=== PATIENT | male | born 1950 | race Caucasian/White ===

== ENCOUNTER 2023-03-18 19:53 | Inpatient (IN) | payer OTHER, SELFPAY ==
[2023-03-18] VITALS (14 sets, daily range): BP systolic 140–200; BP diastolic 79–107; PULSE 79–140; RESP 13–22; TEMP 36.1; O2SAT 94–98; BMI 24.3
--- NOTE | 2023-03-18 20:05 | DI.RAD.S_ITS ---
PROCEDURE: XR CHEST 1V INDICATIONS: chest pain TECHNIQUE: One view of the chest was acquired. COMPARISON: None. FINDINGS: Surgical changes and devices: Sternotomy wires. Cardiac occluded device. Lungs and pleura: Low lung volumes. Mild right lung base opacities. No pleural effusions. Prominent appearance of the right hilum. Mediastinum: Borderline cardiomegaly. Bones and chest wall: No suspicious bony lesions. Overlying soft tissues appear unremarkable. IMPRESSION: Prominent appearance of the right hilum, as well as mild right lung base opacities. Correlate clinically for any infectious symptoms and consider surveillance imaging to ensure resolution. Dictated by: Cliff Arredondo M.D. on 03/18/2023 at 20:56 Approved by: Cliff Arredondo M.D. on 03/18/2023 at 20:58
--- NOTE | 2023-03-18 20:17 | ED.ARRPALP ---
HPI - Arrhythmia/Palpitations General Chief Complaint: Arrhythmia/Palpitations Stated Complaint: sob, afib / rvr Time Seen by Provider: 03/18/23 20:11 Source: patient and EMS Mode of arrival: EMS History of Present Illness HPI narrative: Patient is a 72-year-old male who arrived by EMS for evaluation of shortness of breath and cough. He states that he is a history of COPD and has not been feeling well for the past couple days. He is not having chest pain or palpitations. No lower extremity swelling. He feels like he is dehydrated. No fevers. He does have a nonproductive cough. He recently moved to the local area from [place]. He has a history of coronary artery disease. His head bypass in the past. Triage note states that he has a history of atrial fibrillation after his bypass however when I talked with the patient he states he does not remember ever having a irregular heart rhythm/atrial fibrillation. Related Data Allergies Allergy/AdvReac Type Severity Reaction Status Date / Time acetaminophen [From Tylenol] Allergy Unknown Verified 03/18/23 20:08 levothyroxine Allergy Unknown Verified 03/18/23 20:08 Review of Systems Constitutional Constitutional: Reports system reviewed and no additional complaints, except as documented Cardiovascular Cardiovascular: Reports system reviewed and no additional complaints, except as documented Respiratory Respiratory: Reports system reviewed and no additional complaints, except as documented Gastrointestinal Gastrointestinal: Reports system reviewed and no additional complaints, except as documented Integumentary/Breasts Skin/Breast: Reports system reviewed and no additional complaints, except as documented Neurologic Neurologic: Reports system reviewed and no additional complaints, except as documented Hematologic/Lymphatic On Anticoagulants: No Patient History Social History Smoking Status: Former smoker Smoking Status: Former smoker alcohol intake frequency: 0-2 drinks per day Substance Use Type: does not use Exam Initial Vital Signs Initial Vital Signs: Vital Signs Temperature 97 F L 03/18/23 20:00 Pulse Rate 138 H 03/18/23 20:00 Respiratory Rate 20 03/18/23 20:00 Blood Pressure 200/107 H 03/18/23 20:00 Pulse Oximetry 98 03/18/23 20:00 Oxygen Delivery Method Room Air 03/18/23 20:00 Const General: cooperative, comfortable and No ill appearing HENDC Head: normal to inspection and normocephalic Resp Effort & Inspection: normal respiratory effort Auscultation: clear to auscultation bilaterally Cardio Rate: tachycardic Rhythm: abnormal rhythm GI Inspection: normal to inspection and non-distended Neuro General: patient alert, patient awake and moves all extremities Extrem General: No edema Course Orders Ordered: ED Orders 03/18/23 20:05 XR chest 1V Stat EKG-12 Lead Stat 03/18/23 20:08 Complete Blood Count AUTO DIFF Stat Comprehensive Metabolic Panel Stat Lactate (Lactic Acid) Stat Lipase Stat Magnesium Stat PTT Partial Thromboplastin Woody Stat Procalcitonin Stat Prothrombin Time INR Stat Troponin & CK Cardiac Panel Stat 03/18/23 20:33 Respiratory Panel (Film Array) Stat 03/18/23 20:52 EKG-12 Lead Stat 03/18/23 22:04 Blood Culture Stat Acetaminophen (Acetaminophen 325 Mg Tablet) 650 mg PO Q6H PRN PRN Reason: Fever/Mild Pain (1-3) Al Hydrox/Mg Hydrox/Simethicone (Mag Hydrox/Alum/Simeth 30 Ml Udc) 30 ml PO Q6HR PRN PRN Reason: Dyspepsia Apixaban (Apixaban 5 Mg Tablet) 2.5 mg PO BID CRISTEL Calcium Carbonate (Calcium Carbonate 500 Mg Tab) 1,000 mg PO Q4HR PRN PRN Reason: Dyspepsia Diltiazem HCl (Diltiazem 30 Mg Tablet) 30 mg PO Q6HR CRISTEL DILTIAZEM (Diltiazem 125 Mg/125 Ml-D5w) 125 mg in 125 mls @ 5 mls/hr IV TITRATE CRISTEL; Protocol Last Titration: 03/18/23 23:03 Dose: 0 mg/hr, 0 mls/hr Documented By: Admin: 03/18/23 20:26 Dose: 5 mg/hr, 5 mls/hr Documented By: AMANDA Naloxone HCl (Naloxone 0.4 Mg/Ml Vial) 0.2 mg IV Q2MIN PRN PRN Reason: Opiate Reversal Ondansetron HCl (Ondansetron 4 Mg Odt) 4 mg PO Q8HR PRN PRN Reason: Nausea And Vomiting Sennosides (Sennosides 8.6 Mg Tablet) 17.2 mg PO BEDTIME CRISTEL Discontinued Medications Aspirin (Aspirin 81 Mg Chew Tab) 324 mg PO NOW ONE Stop: 03/18/23 20:06 Last Admin: 04/21/23 20:25 Dose: 324 mg Documented By: AMANDA Diltiazem HCl (Diltiazem 5 Mg/Ml Sdv) 10 mg IV NOW ONE Stop: 03/18/23 20:18 Last Admin: 03/18/23 20:25 Dose: 10 mg Documented By: AMANDA Diltiazem HCl (Diltiazem Cd 120 Mg Cap) 120 mg PO NOW ONE Stop: 03/18/23 22:01 Last Admin: 03/18/23 22:41 Dose: 120 mg Documented By: AMANDA Azithromycin 500 mg/ Dextrose 250 mls @ 250 mls/hr IV NOW ONE Stop: 03/18/23 21:34 Last Infusion: 03/19/23 00:14 Dose: 0 mls/hr Documented By: Admin: 03/18/23 23:02 Dose: 250 mls/hr Documented By: AMANDA Ceftriaxone Sodium 1,000 mg/ (Sodium Chloride) 100 mls @ 200 mls/hr IV NOW ONE Stop: 03/18/23 21:34 Last Infusion: 03/18/23 23:15 Dose: 0 mls/hr Documented By: Admin: 03/18/23 22:41 Dose: 200 mls/hr Documented By: AMANDA Metoprolol Succinate (Metoprolol Er 25 Mg Tablet) 25 mg PO NOW ONE Stop: 03/18/23 21:39 Last Admin: 03/18/23 23:30 Dose: Not Given Documented By: AMANDA Vital Signs Vital signs: Vital Signs - 8 hr 03/18/23 20:00 03/18/23 20:25 03/18/23 20:03 Temperature 97 F L Pulse Rate 138 H 134 H 120 H Respiratory Rate 20 14 Blood Pressure 200/107 H 178/103 H Pulse Oximetry 98 97 Oxygen Delivery Method Room Air 03/18/23 20:04 03/18/23 20:04 03/18/23 20:16 Temperature Pulse Rate 140 H 122 H Respiratory Rate 22 22 Blood Pressure 167/98 H Pulse Oximetry 97 98 Oxygen Delivery Method 03/18/23 20:16 03/18/23 20:30 03/18/23 20:30 Temperature Pulse Rate 101 H Respiratory Rate Blood Pressure 178/103 H 170/85 H Pulse Oximetry Oxygen Delivery Method 03/18/23 20:45 03/18/23 20:45 03/18/23 21:00 Temperature Pulse Rate 86 Respiratory Rate Blood Pressure 163/103 H 140/90 Pulse Oximetry 95 Oxygen Delivery Method 03/18/23 21:00 03/18/23 21:15 03/18/23 21:15 Temperature Pulse Rate 81 84 Respiratory Rate 13 Blood Pressure 158/93 H Pulse Oximetry 94 95 Oxygen Delivery Method 03/18/23 21:30 03/18/23 21:30 03/18/23 21:45 Temperature Pulse Rate 89 Respiratory Rate 17 Blood Pressure 164/101 H 149/83 H Pulse Oximetry 97 Oxygen Delivery Method 03/18/23 21:45 03/18/23 22:00 03/18/23 22:00 Temperature Pulse Rate 79 79 Respiratory Rate 13 13 Blood Pressure 147/89 H Pulse Oximetry 94 96 Oxygen Delivery Method 03/18/23 22:15 03/18/23 22:15 03/18/23 22:30 Temperature Pulse Rate 85 Respiratory Rate 13 Blood Pressure 140/79 142/85 H Pulse Oximetry 94 Oxygen Delivery Method 03/18/23 22:30 Temperature Pulse Rate 82 Respiratory Rate Blood Pressure Pulse Oximetry 96 Oxygen Delivery Method MDM - Arrhythmia/Palpitations Lab Data Attestation: I reviewed the patient's lab results. 03/18/23 20:08 03/18/23 20:08 Labs: Lab Results 03/18/23 03/18/23 03/18/23 Range/Units 20:08 20:08 20:08 WBC 13.9 H (4.5-11.0) X10^3/uL RBC 4.46 L (4.5-5.9) X10^6/uL Hgb 14.0 (13.5-17.5) g/dL Hct 41.5 (41-53) % MCV 93.0 (80-100) fL MCH 31.4 (26-34) PG MCHC 33.8 (30-36) % RDW 13.6 (11.6-14.8) % Plt Count 181 (150-400) X10^3/uL Neut % (Auto) 89.1 H (50-75) % Lymph % (Auto) 5.0 L (25-40) % [place] % (Auto) 5.4 (3-14) % Eos % (Auto) 0.2 L (2-4) % Baso % (Auto) 0.3 (0-2) % Neut # (Auto) 22600 H (9342-1128) /uL Lymph # (Auto) 700 L (9058-1352) /uL [place] # (Auto) 800 (0-900) /uL Eos # (Auto) 0 (0-450) /uL Baso # (Auto) 0 (0-100) /uL PT 13.4 H (10.1-12.7) SECONDS INR 1.2 (0.9-1.3) APTT 33 (26-36) SECONDS Sodium 138 (137-145) mmol/L Potassium 4.0 (3.4-5.1) mmol/L Chloride 100 (98-107) mmol/L Carbon Dioxide 29 (22-32) mmol/L BUN 19 (9-20) mg/dL Creatinine 0.65 L (0.66-1.25) mg/dL Estimated GFR > 60 (>60) mL/min BUN/Creatinine Ratio 29.2 H (6-22) Glucose 124 H (80-110) mg/dL Lactate (0.7-2.1) mmol/L Calcium 9.1 (8.4-10.2) mg/dL Magnesium 2.0 (1.6-2.3) mg/dL Total Bilirubin 1.6 H (0.2-1.3) mg/dL AST 28 (17-59) IU/L ALT 42 (<50) IU/L Alkaline Phosphatase 65 (38-126) U/L Total Creatine Kinase 76 (55-170) U/L CK-MB (CK-2) TNP CK-MB (CK-2) Rel Index TNP Troponin I 0.059 H (0.01-0.034) ng/mL NT-Pro-B Natriuret Pep (<125) pg/mL Total Protein 7.5 (6.3-8.2) g/dL Albumin 4.3 (3.5-5.0) g/dL Globulin 3.2 (1.7-4.1) g/dL Albumin/Globulin Ratio 1.3 (1.0-2.8) Lipase 20 L (23-300) U/L Procalcitonin (<0.5) ng/mL Free T4 (0.78-2.19) ng/dL Ethyl Alcohol ( - 10) mg/dL Chlamy pneumoniae PCR (Not Detect) Adenovirus (PCR) (Not Detect) B. pertussis DNA (PCR) (Not Detecte) B.parapertussis DNA PCR (Not Detecte) Coronavirus OC43 (PCR) (Not Detect) Coronavirus HKU1 (PCR) (Not Detect) Coronavirus 229E (PCR) (Not Detect) SARS-CoV-2 (PCR) (Not Detecte) Coronavirus NL63 (PCR) (Not Detect) Human Metapneumovir PCR (Not Detect) Influenza Type A (PCR) (Not Detect) Influenza Type B (PCR) (Not Detect) M. pneumoniae (PCR) (Not Detect) Parainfluenza 1 (PCR) (Not Detect) Parainfluenza 2 (PCR) (Not Detect) Parainfluenza 3 (PCR) (Not Detect) Parainfluenza 4 (PCR) (Not Detect) RSV (PCR) (Not Detect) Entero/Rhino (PCR) (Not Detect) 03/18/23 03/18/23 03/18/23 Range/Units 20:08 20:08 20:08 WBC (4.5-11.0) X10^3/uL RBC (4.5-5.9) X10^6/uL Hgb (13.5-17.5) g/dL Hct (41-53) % MCV (80-100) fL MCH (26-34) PG MCHC (30-36) % RDW (11.6-14.8) % Plt Count (150-400) X10^3/uL Neut % (Auto) (50-75) % Lymph % (Auto) (25-40) % [place] % (Auto) (3-14) % Eos % (Auto) (2-4) % Baso % (Auto) (0-2) % Neut # (Auto) (2509-1769) /uL Lymph # (Auto) (0689-7676) /uL [place] # (Auto) (0-900) /uL Eos # (Auto) (0-450) /uL Baso # (Auto) (0-100) /uL PT (10.1-12.7) SECONDS INR (0.9-1.3) APTT (26-36) SECONDS Sodium (137-145) mmol/L Potassium (3.4-5.1) mmol/L Chloride (98-107) mmol/L Carbon Dioxide (22-32) mmol/L BUN (9-20) mg/dL Creatinine (0.66-1.25) mg/dL Estimated GFR (>60) mL/min BUN/Creatinine Ratio (6-22) Glucose (80-110) mg/dL Lactate 1.5 (0.7-2.1) mmol/L Calcium (8.4-10.2) mg/dL Magnesium (1.6-2.3) mg/dL Total Bilirubin (0.2-1.3) mg/dL AST (17-59) IU/L ALT (<50) IU/L Alkaline Phosphatase (38-126) U/L Total Creatine Kinase (55-170) U/L CK-MB (CK-2) CK-MB (CK-2) Rel Index Troponin I (0.01-0.034) ng/mL NT-Pro-B Natriuret Pep (<125) pg/mL Total Protein (6.3-8.2) g/dL Albumin (3.5-5.0) g/dL Globulin (1.7-4.1) g/dL Albumin/Globulin Ratio (1.0-2.8) Lipase (23-300) U/L Procalcitonin 0.06 (<0.5) ng/mL Free T4 1.00 (0.78-2.19) ng/dL Ethyl Alcohol ( - 10) mg/dL Chlamy pneumoniae PCR (Not Detect) Adenovirus (PCR) (Not Detect) B. pertussis DNA (PCR) (Not Detecte) B.parapertussis DNA PCR (Not Detecte) Coronavirus OC43 (PCR) (Not Detect) Coronavirus HKU1 (PCR) (Not Detect) Coronavirus 229E (PCR) (Not Detect) SARS-CoV-2 (PCR) (Not Detecte) Coronavirus NL63 (PCR) (Not Detect) Human Metapneumovir PCR (Not Detect) Influenza Type A (PCR) (Not Detect) Influenza Type B (PCR) (Not Detect) M. pneumoniae (PCR) (Not Detect) Parainfluenza 1 (PCR) (Not Detect) Parainfluenza 2 (PCR) (Not Detect) Parainfluenza 3 (PCR) (Not Detect) Parainfluenza 4 (PCR) (Not Detect) RSV (PCR) (Not Detect) Entero/Rhino (PCR) (Not Detect) 03/18/23 03/18/23 03/18/23 Range/Units 20:08 20:08 20:33 WBC (4.5-11.0) X10^3/uL RBC (4.5-5.9) X10^6/uL Hgb (13.5-17.5) g/dL Hct (41-53) % MCV (80-100) fL MCH (26-34) PG MCHC (30-36) % RDW (11.6-14.8) % Plt Count (150-400) X10^3/uL Neut % (Auto) (50-75) % Lymph % (Auto) (25-40) % [place] % (Auto) (3-14) % Eos % (Auto) (2-4) % Baso % (Auto) (0-2) % Neut # (Auto) (5157-9294) /uL Lymph # (Auto) (4793-3351) /uL [place] # (Auto) (0-900) /uL Eos # (Auto) (0-450) /uL Baso # (Auto) (0-100) /uL PT (10.1-12.7) SECONDS INR (0.9-1.3) APTT (26-36) SECONDS Sodium (137-145) mmol/L Potassium (3.4-5.1) mmol/L Chloride (98-107) mmol/L Carbon Dioxide (22-32) mmol/L BUN (9-20) mg/dL Creatinine (0.66-1.25) mg/dL Estimated GFR (>60) mL/min BUN/Creatinine Ratio (6-22) Glucose (80-110) mg/dL Lactate (0.7-2.1) mmol/L Calcium (8.4-10.2) mg/dL Magnesium (1.6-2.3) mg/dL Total Bilirubin (0.2-1.3) mg/dL AST (17-59) IU/L ALT (<50) IU/L Alkaline Phosphatase (38-126) U/L Total Creatine Kinase (55-170) U/L CK-MB (CK-2) CK-MB (CK-2) Rel Index Troponin I (0.01-0.034) ng/mL NT-Pro-B Natriuret Pep 1140 H (<125) pg/mL Total Protein (6.3-8.2) g/dL Albumin (3.5-5.0) g/dL Globulin (1.7-4.1) g/dL Albumin/Globulin Ratio (1.0-2.8) Lipase (23-300) U/L Procalcitonin (<0.5) ng/mL Free T4 (0.78-2.19) ng/dL Ethyl Alcohol < 10 ( - 10) mg/dL Chlamy pneumoniae PCR Not detected (Not Detect) Adenovirus (PCR) Not detected (Not Detect) B. pertussis DNA (PCR) Not detected (Not Detecte) B.parapertussis DNA PCR Not detected (Not Detecte) Coronavirus OC43 (PCR) Not detected (Not Detect) Coronavirus HKU1 (PCR) Not detected (Not Detect) Coronavirus 229E (PCR) Not detected (Not Detect) SARS-CoV-2 (PCR) Not detected (Not Detecte) Coronavirus NL63 (PCR) Not detected (Not Detect) Human Metapneumovir PCR Not detected (Not Detect) Influenza Type A (PCR) Not detected (Not Detect) Influenza Type B (PCR) Not detected (Not Detect) M. pneumoniae (PCR) Not detected (Not Detect) Parainfluenza 1 (PCR) Not detected (Not Detect) Parainfluenza 2 (PCR) Not detected (Not Detect) Parainfluenza 3 (PCR) Not detected (Not Detect) Parainfluenza 4 (PCR) Not detected (Not Detect) RSV (PCR) Not detected (Not Detect) Entero/Rhino (PCR) Not detected (Not Detect) Imaging Data Chest x-ray: Radiologist's Impresson: PROCEDURE:? XR CHEST 1V ? INDICATIONS:? chest pain ? TECHNIQUE:? One view of the chest was acquired.? ? COMPARISON:? None. ? FINDINGS:? ? Surgical changes and devices:? Sternotomy wires.? Cardiac occluded device. ? Lungs and pleura:? Low lung volumes.? Mild right lung base opacities.? No pleural effusions.? Prominent appearance of the right hilum. ? Mediastinum:? Borderline cardiomegaly. ? Bones and chest wall:? No suspicious bony lesions.? Overlying soft tissues appear unremarkable.? ? IMPRESSION:? Prominent appearance of the right hilum, as well as mild right lung base opacities.? Correlate clinically for any infectious symptoms and consider surveillance imaging to ensure resolution.? ECG Data Attestation: I personally reviewed and interpreted this ECG as follows: Interpretation: Atrial flutter Ventricular rate 105 Normal axis Normal QRS Incomplete right bundle-branch block Atrial flutter Ventricular rate 82 Normal axis Normal QRS Incomplete right bundle-branch block MDM Narrative Medical decision making narrative: Patient does have clear lung exam. Is not hypoxic. Chest x-ray shows right perihilar markings that could be concerning for pneumonia. Given his presentation will start him on antibiotics. I did inform him that he does need follow-up to be sure that these findings to clear up with antibiotics. He expressed understanding of this. Patient is also in AFib/a flutter with a rapid ventricular rate. He is not on anticoagulation. He does not feel any palpitations. Patient not a candidate for cardioversion given the lack of a definitive onset. He was given Cardizem bolus then a Cardizem drip and this did help his heart rate tremendously. Patient does require admission in the hospital for further evaluation of his AFib/pneumonia. Discussed the case with ARMANDO Barrios the night hospitalist. Initial plan was to transition from diltiazem to oral metoprolol however the patient refused to take the metoprolol. He states that he is had metoprolol in the past and that it ?messed up my heart? because of this we switched him to oral diltiazem. We were able to adequately rate control him with this. We are able to take him off the drip. We will admit for further evaluation and treatment. Patient expressed understanding and agreement with plan. Discharge Plan Departure Patient Disposition: Admitted as Observation Clinical Impression: Pneumonia, Atrial flutter Admit Date/Time: 03/18/23 22:35 Admit Provider: Haleigh Barrios
[2023-03-18 20:19] LABS: Add Manual Diff / Slide Review NO; Basophils Absolute Auto 0 /uL (0-100); Basophils Percent Auto 0.3 % (0-2); Eosinophils Absolute Auto 0 /uL (0-450); Eosinophils Percent Auto 0.2 % (2-4); Hematocrit 41.5 % (41-53); Lymphocytes Absolute Auto 700 /uL (1100-4500); Mean Corpuscular HGB Conc 33.8 % (30-36); Mean Corpuscular Hemoglobin 31.4 PG (26-34); Monocytes Absolute Auto 800 /uL (0-900); Monocytes Percent Auto 5.4 % (3-14); Neutrophils Absolute Auto 12300 /uL (1500-7000); Neutrophils Percent Auto 89.1 % (50-75); Platelet Count 181 X10^3/uL (150-400); Red Blood Cell Count 4.46 X10^6/uL (4.5-5.9); Red Cell Distribution Width 13.6 % (11.6-14.8); White Blood Cell Count 13.9 X10^3/uL (4.5-11.0)
[2023-03-18] MEDS: dilTIAZem 5 MG/ML SDV 10 MG IV (20:25)
[2023-03-18] MEDS: ASPIRIN 81 MG CHEW TAB 324 MG PO (20:25)
[2023-03-18] MEDS: DILTIAZEM 125 MG/125 ML PIGGYBACK IV (20:26)
[2023-03-18 20:28] LABS: INR 1.2 (0.9-1.3); Prothrombin Time 13.4 SECONDS (10.1-12.7)
[2023-03-18 20:31] LABS: PTT Partial Thromboplastin Tim 33 SECONDS (26-36)
[2023-03-18 20:33] LABS: Alanine Aminotransferase 42 IU/L (<50); Albumin 4.3 g/dL (3.5-5.0); Albumin Globulin Ratio 1.3 (1.0-2.8); Alkaline Phosphatase 65 U/L (38-126); Aspartate Aminotransferase 28 IU/L (17-59); BUN Creatinine Ratio 29.2 (6-22); Bilirubin Total 1.6 mg/dL (0.2-1.3); Blood Urea Nitrogen 19 mg/dL (9-20); Calcium 9.1 mg/dL (8.4-10.2); Carbon Dioxide 29 mmol/L (22-32); Chloride 100 mmol/L (98-107); Creatine Kinase 76 U/L (55-170); Estimated Glomerular Filt Rate > 60 mL/min (>60); Globulin 3.2 g/dL (1.7-4.1); Glucose 124 mg/dL (80-110); HEMOLYSIS < 15 (0-50); Lipase 20 U/L (23-300); Sodium 138 mmol/L (137-145); Total Protein 7.5 g/dL (6.3-8.2)
[2023-03-18 20:44] LABS: Troponin I 0.059 ng/mL (0.01-0.034)
[2023-03-18 21:40] LABS: Adenovirus Not Detected (Not Detect); B. parapertussis Not Detected (Not Detecte); Bordetella pertussis Not Detected (Not Detecte); Chlamydophila pneumoniae Not Detected (Not Detect); Coronavirus 229E Not Detected (Not Detect); Coronavirus HKU1 Not Detected (Not Detect); Coronavirus NL 63 Not Detected (Not Detect); Coronavirus OC43 Not Detected (Not Detect); Human Metapneumovirus Not Detected (Not Detect); Human Rhinovirus/Enterovirus Not Detected (Not Detect); Influenza A Not Detected (Not Detect); Influenza B Not Detected (Not Detect); Mycoplasma pneumoniae Not Detected (Not Detect); Parainfluenza Virus 1 Not Detected (Not Detect); Parainfluenza Virus 2 Not Detected (Not Detect); Parainfluenza Virus 3 Not Detected (Not Detect); Parainfluenza Virus 4 Not Detected (Not Detect); Respiratory Syncytial Virus Not Detected (Not Detect); SARS- CoV-2 Not Detected (Not Detecte)
[2023-03-18 21:52] LABS: Lactate (Lactic Acid) 1.5 mmol/L (0.7-2.1)
[2023-03-18 22:10] LABS: Procalcitonin 0.06 ng/mL (<0.5)
[2023-03-18] MEDS: dilTIAZem CD 120 MG CAP PO (22:41)
[2023-03-18] MEDS: cefTRIAXone 1,000 MG in SODIUM CHLORIDE 0.9% 100 ML 200 MG IV (22:41)
[2023-03-18] MEDS: AZITHROMYCIN 500 MG in DEXTROSE 5% IN WATER 250 ML 250 MG IV (23:02)
--- NOTE | 2023-03-18 23:28 | DI.ECHO.S_ITS ---
[place] +---------+ [facility] +---------+ : : [address] : : : : [id number] : : : : Phone: [phone] Echocardiogram Report + + :Name: TAY SANTANA Study Date: 03/19/2023 Height: 74 in : :[facility] ReadingLocation: Weight: 190 lb : : Gender: Male BSA: 2.1 m2 : :: 1950 Age: 72 yrs BP: 122/82 mmHg: :Reason For Study: AFIB : :Ordering Physician: KAREN, : :KACEY Performed By: Oksana Baumann : :Referring: KACEY JONES : + + Interpretation Summary The patient was in atrial flutter with heart rates between 69-94 bpm during the exam. The left ventricle is normal in size and wall thickness. The ejection fraction is estimated to be 50-55%. The right ventricle is normal size. Right ventricular systolic function is mildly reduced. There is moderate mitral regurgitation. There is mild aortic regurgitation. There is moderate tricuspid regurgitation. The right ventricular systolic pressure is estimated to be at least 46 mmHg based on an estimated right atrial pressure of 8 mm Hg. The ascending aorta is mildly enlarged. Procedure: A two-dimensional transthoracic echocardiogram with color flow and Doppler was performed. The study quality was technically adequate. There is no prior echocardiogram noted for this patient. The patient was in atrial flutter with heart rates between 69-94 bpm during the exam. Left Ventricle: The left ventricle is normal in size and wall thickness. There is no thrombus. The ejection fraction is estimated to be 50-55%. There are no focal wall motion abnormalities. Diastolic function could not be accurately assessed due to atrial fibrillation. Right Ventricle: The right ventricle is normal size. Right ventricular systolic function is mildly reduced. Atria: The left atrium is moderately dilated. The right atrium is mildly dilated. There is no Doppler evidence for an interatrial shunt. Mitral Valve: The mitral valve leaflets are slightly calcified. There is moderate mitral regurgitation. Aortic Valve: The aortic valve is trileaflet. The aortic valve opens well. There is no aortic valve stenosis. There is mild aortic regurgitation. Tricuspid Valve: The tricuspid valve is normal. There is moderate tricuspid regurgitation. The right ventricular systolic pressure is estimated to be at least 46 mmHg based on an estimated right atrial pressure of 8 mm Hg. Pulmonic Valve: The pulmonic valve leaflets are thin and pliable; valve motion is normal. There is trace pulmonic regurgitation. Great Vessels: The aortic root is normal size. The ascending aorta is mildly enlarged. The IVC is dilated (diameter is greater than 2.1 cm) yet it collapses greater than 50% with a sniff. This suggests a right atrial pressure of 8 mm Hg. Pericardium/ Pleura There is no pericardial effusion. There is an anterior echo-free space consistent with a fat pad. There is no pleural effusion. MMode/2D Measurements & Calculations LVIDd: 5.5 cm LVOT diam: 2.2 cm LVIDs: 4.1 cm Ao root diam: 3.4 cm FS: 25.2 % asc Aorta Diam: 4.2 cm EPSS: 0.96 cm IVSd: 0.95 cm LVPWd: 1.1 cm LV jansen. diameter/BSA (cm/m^2): 2.6 LV sys. diameter/BSA (cm/m^2): 2.0 LA A2 area: 24.9 cm2 RA long axis: 6.2 cm LA A4 area: 27.9 cm2 RA area: 23.7 cm2 LA length (vol): 6.4 cm RA vol: 76.6 ml LA vol: 92.3 ml RA : 36.0 ml/m2 LA vol index: 43.4 ml/m2 IVC diam: 2.7 cm RVD1 (basal): 3.6 cm RVD2 (mid): 2.9 cm TAPSE: 1.5 cm Doppler Measurements & Calculations Ao V2 max: 128.9 cm/sec LVOT Max Jose David: 85.1 cm/sec Ao V2 mean: 90.7 cm/sec LV V1 max P.9 mmHg Ao max P.7 mmHg LV V1 VTI: 14.0 cm Ao mean P.6 mmHg AMBER(I,D): 2.5 cm2 Ao V2 VTI: 21.9 cm AMBER(V,D): 2.5 cm2 sev ratio: 0.64 AMBER indexed to BSA (cm^2/m^2): 1.2 MV E max jose david: 92.5 cm/sec TR max jose david: 309.0 cm/sec MV A max jose david: 0.55 cm/sec TR max P.2 mmHg MV E/A: 169.5 PA V2 max: 89.9 cm/sec Med Peak E' Jose David: 6.3 cm/sec PA V2 mean: 62.4 cm/sec E/E' med: 14.7 PA mean P.7 mmHg Lat Peak E' Jose David: 8.8 cm/sec PA pr(Accel): 20.8 mmHg E/E' lat: 10.5 E/e' average: 12.6 MV dec time: 0.19 sec SV(LVOT): 53.8 ml Reading Physician:03:30 PM
--- NOTE | 2023-03-18 23:35 | P.HP_ITS ---
History of Present Illness History of Present Illness Date Patient Seen: 03/18/23 Time Patient Seen: 23:35 Chief complaint: sob, afib / rvr Narrative: Rosalino Vegas is a 72-year-old male with a past medical history of COPD, PTSD, CAD with CABG who presented to the ED with several days of cough and worsening shortness of breath, found to be in atrial fibrillation with heart rates between 120 and 140, with hypertensive urgency BP is 200/107, 178/103, 170/85, 164/101, initial bolus diltiazem was attempted, heart rate was not improved, patient was paced on a diltiazem drip the patient did respond positively and when his heart rate dropped lower 80-100 he developed atrial flutter in the ED. after some time on the drip the patient was transitioned from 5 mg a diltiazem to oral dose of 120 Cardizem CD and remained rate controlled and asymptomatic. On admit patient denies chest pain, shortness in breath, headache, changes in vision, difficulty swallowing, speech impairment, weakness, numbness, tingling, difficulty with ambulation, recent falls, head injury, LOC, fever, body aches, chills, cough, recent exposure to illness, abdominal pain, nausea, vomiting, urinary incontinence/retention, dysuria, frequency, urgency, hematuria, bowel changes, constipation, incontinence, melena, rashes, recent changes to medication, illness, injury, or trauma. Patient states he has no history of atrial fibrillation takes no medications other than albuterol inhaler, patient is extraordinarily anxious and agitated requesting Valium as he states that he did not tolerate Ativan in the past. Patient is able to speak in full sentences no coughing present does not appear to be fluid overloaded, lungs are clear. On admit temp 97?, BP 142/85, HR 82 in AFib, RR 13, O2 saturation 96% on room air. WBC 13.9 neut # 12,300, lactate, procalcitonin, respiratory panel to include COVID are all negative. Remainder of labs are unremarkable with the exception of bili 1.6, and initial troponin 0.059. I personally reviewed EKG/all imaging EKG: Atrial flutter, rate 82, with incomplete right BBB. Patient's chest x-ray demonstrates predominant appearance of right hilur, mild right lung base opacities possibly developing pneumonia, and borderline cardiomegaly. Patient admitted for observation for new onset atrial fibrillation, myocardial injury, and hypertensive urgency. [facility] Medical History CAD (coronary artery disease) of bypass graft COPD (chronic obstructive pulmonary disease) PTSD (post-traumatic stress disorder) Surgical History History of coronary artery bypass graft Family History Father No problems noted. Mother No problems noted. Social History household members: none Smoking Status: Former smoker Meds Home Medications and Allergies Allergies Allergy/AdvReac Type Severity Reaction Status Date / Time acetaminophen [From Tylenol] Allergy Unknown Verified 03/18/23 20:08 levothyroxine Allergy Unknown Verified 03/18/23 20:08 Review of Systems Review of Systems Narrative: All 12 point systems reviewed with the patient and are negative except otherwise documented. Exam Vital Signs (past 8 hours): - 03/18/23 20:00 03/18/23 20:25 03/18/23 20:03 Temperature 97 F L Pulse Rate 138 H 134 H 120 H Respiratory Rate 20 14 Blood Pressure 200/107 H 178/103 H Pulse Oximetry 98 97 Oxygen Delivery Method Room Air 03/18/23 20:04 03/18/23 20:04 03/18/23 20:16 Temperature Pulse Rate 140 H 122 H Respiratory Rate 22 22 Blood Pressure 167/98 H Pulse Oximetry 97 98 Oxygen Delivery Method 03/18/23 20:16 03/18/23 20:30 03/18/23 20:30 Temperature Pulse Rate 101 H Respiratory Rate Blood Pressure 178/103 H 170/85 H Pulse Oximetry Oxygen Delivery Method 03/18/23 20:45 03/18/23 20:45 03/18/23 21:00 Temperature Pulse Rate 86 Respiratory Rate Blood Pressure 163/103 H 140/90 Pulse Oximetry 95 Oxygen Delivery Method 03/18/23 21:00 03/18/23 21:15 03/18/23 21:15 Temperature Pulse Rate 81 84 Respiratory Rate 13 Blood Pressure 158/93 H Pulse Oximetry 94 95 Oxygen Delivery Method 03/18/23 21:30 03/18/23 21:30 03/18/23 21:45 Temperature Pulse Rate 89 Respiratory Rate 17 Blood Pressure 164/101 H 149/83 H Pulse Oximetry 97 Oxygen Delivery Method 03/18/23 21:45 03/18/23 22:00 03/18/23 22:00 Temperature Pulse Rate 79 79 Respiratory Rate 13 13 Blood Pressure 147/89 H Pulse Oximetry 94 96 Oxygen Delivery Method 03/18/23 22:15 03/18/23 22:15 03/18/23 22:30 Temperature Pulse Rate 85 Respiratory Rate 13 Blood Pressure 140/79 142/85 H Pulse Oximetry 94 Oxygen Delivery Method 03/18/23 22:30 Temperature Pulse Rate 82 Respiratory Rate Blood Pressure Pulse Oximetry 96 Oxygen Delivery Method Oxygen Delivery Method Room Air Narrative Exam Narrative: General: Patient is a well-developed, well-nourished in no distress at this time. HEENT: Normocephalic, atraumatic, extraocular muscles intact, oral pharynx is clear and mucous membranes are moist. Neck is supple and symmetric, trachea is midline, no adenopathy, no thyroid enlargement, nontender, no masses palpated. Negative for JVD Chest: Normal AP diameter and contour without kyphoscoliosis, no nasal flaring, retractions, or tachypneic labored breathing, able to speak in full sentences, no cough observed or shortness of breath. Lungs: Auscultation of all lung neal are clear without adventitious sounds, wheezes, rhonchi, or rales. Cardio: Regular rate and irregular/AFib/ Aflutter rhythm without murmur, rubs, or gallops, no carotid bruit, no cardiac pulsations present. Abdomen: Soft nontender, negative for organomegaly, or masses. Bowel sounds are present in all 4 quadrants without guarding or rebound, no CVA tenderness. Musculoskeletal: Muscle strength and tone are equal within normal limits, no deformity, crepitus, effusions, cyanosis, clubbing or edema present. Full range of motion intact radial and pedal pulses are normal. Skin: Warm dry and intact without rashes, ulcerations or petechiae. Neuro: Alert and orientated x3, strength is +5/5 in all extremities, sensation to touch intact, no gross deficits noted of cranial nerves. Psych: Patient has a well-kept appearance, very anxious easily agitated, mental status attitude thought context and judgment are appropriate for age. Objective Labs 03/18/23 20:08 03/18/23 20:08 Labs: Laboratory Results - last 24 hr 03/18/23 03/18/23 03/18/23 20:08 20:08 20:08 WBC 13.9 H RBC 4.46 L Hgb 14.0 Hct 41.5 MCV 93.0 MCH 31.4 MCHC 33.8 RDW 13.6 Plt Count 181 Neut % (Auto) 89.1 H Lymph % (Auto) 5.0 L Sherman % (Auto) 5.4 Eos % (Auto) 0.2 L Baso % (Auto) 0.3 Neut # (Auto) 38864 H Lymph # (Auto) 700 L Sherman # (Auto) 800 Eos # (Auto) 0 Baso # (Auto) 0 PT 13.4 H INR 1.2 APTT 33 Sodium 138 Potassium 4.0 Chloride 100 Carbon Dioxide 29 BUN 19 Creatinine 0.65 L Estimated GFR > 60 BUN/Creatinine Ratio 29.2 H Glucose 124 H Lactate Calcium 9.1 Magnesium 2.0 Total Bilirubin 1.6 H AST 28 ALT 42 Alkaline Phosphatase 65 Total Creatine Kinase 76 CK-MB (CK-2) TNP CK-MB (CK-2) Rel Index TNP Troponin I 0.059 H Total Protein 7.5 Albumin 4.3 Globulin 3.2 Albumin/Globulin Ratio 1.3 Lipase 20 L Procalcitonin Chlamy pneumoniae PCR Adenovirus (PCR) B. pertussis DNA (PCR) B.parapertussis DNA PCR Coronavirus OC43 (PCR) Coronavirus HKU1 (PCR) Coronavirus 229E (PCR) SARS-CoV-2 (PCR) Coronavirus NL63 (PCR) Human Metapneumovir PCR Influenza Type A (PCR) Influenza Type B (PCR) M. pneumoniae (PCR) Parainfluenza 1 (PCR) Parainfluenza 2 (PCR) Parainfluenza 3 (PCR) Parainfluenza 4 (PCR) RSV (PCR) Entero/Rhino (PCR) 03/18/23 03/18/23 03/18/23 20:08 20:08 20:33 WBC RBC Hgb Hct MCV MCH MCHC RDW Plt Count Neut % (Auto) Lymph % (Auto) Sherman % (Auto) Eos % (Auto) Baso % (Auto) Neut # (Auto) Lymph # (Auto) Sherman # (Auto) Eos # (Auto) Baso # (Auto) PT INR APTT Sodium Potassium Chloride Carbon Dioxide BUN Creatinine Estimated GFR BUN/Creatinine Ratio Glucose Lactate 1.5 Calcium Magnesium Total Bilirubin AST ALT Alkaline Phosphatase Total Creatine Kinase CK-MB (CK-2) CK-MB (CK-2) Rel Index Troponin I Total Protein Albumin Globulin Albumin/Globulin Ratio Lipase Procalcitonin 0.06 Chlamy pneumoniae PCR Not detected Adenovirus (PCR) Not detected B. pertussis DNA (PCR) Not detected B.parapertussis DNA PCR Not detected Coronavirus OC43 (PCR) Not detected Coronavirus HKU1 (PCR) Not detected Coronavirus 229E (PCR) Not detected SARS-CoV-2 (PCR) Not detected Coronavirus NL63 (PCR) Not detected Human Metapneumovir PCR Not detected Influenza Type A (PCR) Not detected Influenza Type B (PCR) Not detected M. pneumoniae (PCR) Not detected Parainfluenza 1 (PCR) Not detected Parainfluenza 2 (PCR) Not detected Parainfluenza 3 (PCR) Not detected Parainfluenza 4 (PCR) Not detected RSV (PCR) Not detected Entero/Rhino (PCR) Not detected Assessment & Plan Assessment & Plan narrative: Rosalino Vegas is a 72-year-old male with a past medical history of COPD, PTSD, CAD with CABG who presented to the ED with several days of cough and worsening shortness of breath, found to be in atrial fibrillation with hypertens jerome urgency. Patient admitted for observation for new onset atrial fibrillation, myocardial injury, and hypertensive urgency. 1. Atrial fibrillation/flutter, acute, present on admission-patient currently asymptomatic and rate controlled -In ED: HR 120 and 140, with hypertensive urgency , -In ED: initial bolus diltiazem failed -paced on a diltiazem drip -heart rate dropped lower 80-100 he developed atrial flutter in the ED.- transitioned 5drip to 120 Cardizem CD PO-once. -continue Cardizem 60 mg q.6 hours, titrate as needed -admit temp 97?, BP 142/85, HR 82 in AFib, RR 13, O2 saturation 96% on room air. -On tele -Eliquis ordered -TSH, magnesium, BNP, lipids, A1c -echo ordered for tomorrow 2. Myocardial injury likely demand secondary to atrial fibrillation, acute, present on admission-stable/asymptomatic -with history of CAD/CABG -initial troponin 0.059 -trend troponins -initial EKG atrial flutter, rate 82, with incomplete RBBB 3. Thrombocytosis, mild, acute, present on admission -WBC 13.9 neut # 12,300, lactate, procalcitonin, respiratory panel to include COVID are all negative. -Chest x-ray demonstrates predominant appearance of right hilur, mild right lung base opacities possibly developing pneumonia, and borderline cardiomegaly. -patient given azithromycin/Rocephin in ED -holding antibiotics at this time as lactate and procalcitonin are both negative not entirely convinced this is infectious process, will monitor and treat based on culture and laboratory findings -continue to trend white count and inflammatory markers -blood cultures pending, sputum culture if patient produces 4. Hypertensive urgency without the diagnosis of hypertension, acute, present on admission -patient placed on carvedilol 60 mg q.6 hours will titrate as needed -ED: BP is 200/107, 178/103, 170/85, 164/101 5. COPD, chronic, present on admission -patient is stable and appears asymptomatic. -respiratory consult for nebulizers if needed Code status: Full Surrogate decision maker: Patient refused to provide any anyone to contact regarding surrogacy decision-making/POA-also noted he refused to provide emergency contact information to admitting desk. COVID PCR: Negative DVT/VTE prophylaxis: Eric Tavarez Disposition: Patient admitted for observation atrial fibrillation has already been rate controlled with oral medication, expected length of stay less than 2 midnights. I have utilized all available immediate resources to obtain, update, or review the patient's current medications. I confirmed that the patient's advanced care plan is present, Code status is documented and/or surrogate decision maker is listed in the patient's medical record. I have personally reviewed patient's chart notes from PCP, specialists, diagnostic imaging, and laboratory results.
[2023-03-18 23:59] LABS: Ethanol (ETOH) < 10 mg/dL
[2023-03-19] VITALS (10 sets, daily range): BP systolic 111–154; BP diastolic 56–91; PULSE 71–82; RESP 17–22; TEMP 36.6–37.1; O2SAT 94–95; BMI 24.3
[2023-03-19 00:09] LABS: NT-proBNP (BNP-Adult 18+) 1140 pg/mL (<125)
[2023-03-19] MEDS: diazePAM 2 MG TABLET PO ×3 (02:32→21:04)
[2023-03-19 02:45] LABS: Troponin I 0.061 ng/mL (0.01-0.034)
[2023-03-19 02:51] LABS: Appearance Urine UA CLEAR; Bilirubin Urine UA NEGATIVE (NEGATIVE); Color Urine UA YELLOW; Glucose Urine UA NEGATIVE (Negative); Ketones Urine UA NEGATIVE (NEGATIVE); Leukocyte Esterase Urine UA NEGATIVE (NEGATIVE); Nitrite Urine UA NEGATIVE (Negative); Occult Blood Urine UA NEGATIVE (Negative); Protein Urine UA NEGATIVE (Negative); Urobilinogen Urine UA 0.2 E.U./dL (0.2); pH Urine UA 7.5 (4.5-8.0)
[2023-03-19 03:22] LABS: Bacteria Urine None Seen; Culture Indicated Urine Cult Not Indicated; RBC Urine None Seen (0-5/HPF); WBC Urine None Seen (0-5/HPF)
--- NOTE | 2023-03-19 04:07 | PC.NURSE ---
Admit Note-Patient brought to room 224 at 0100, A/Ox4, [place], anxious, states he has PTSD, is feeling shaky and requesting PO Valium, informed AUTOMATION OPERATOR, ordered 2mg given x1. A-fib CVR, BBB, occasional PVCs on tele, BP 142/85, afebrile, SpO2 96% on RA, denies chest pain, palpitations, or shortness of breath, just anxious. Snack provided, urine collected and sent to lab. Bed alarm on. Wallet in room, declines lockup in hospital safe.
[2023-03-19 04:55] LABS: Add Manual Diff / Slide Review NO; Basophils Absolute Auto 100 /uL (0-100); Basophils Percent Auto 0.5 % (0-2); Eosinophils Absolute Auto 0 /uL (0-450); Eosinophils Percent Auto 0.4 % (2-4); Hematocrit 37.4 % (41-53); Hemoglobin 12.6 g/dL (13.5-17.5); Lymphocytes Absolute Auto 1600 /uL (1100-4500); Lymphocytes Percent Auto 13.6 % (25-40); Mean Corpuscular HGB Conc 33.8 % (30-36); Mean Corpuscular Hemoglobin 31.3 PG (26-34); Mean Corpuscular Volume 92.8 fL (80-100); Monocytes Absolute Auto 900 /uL (0-900); Monocytes Percent Auto 7.6 % (3-14); Neutrophils Absolute Auto 9200 /uL (1500-7000); Neutrophils Percent Auto 77.9 % (50-75); Platelet Count 170 X10^3/uL (150-400); Red Blood Cell Count 4.03 X10^6/uL (4.5-5.9); Red Cell Distribution Width 13.6 % (11.6-14.8); White Blood Cell Count 11.8 X10^3/uL (4.5-11.0)
[2023-03-19 05:04] LABS: BUN Creatinine Ratio 25.4 (6-22); Blood Urea Nitrogen 17 mg/dL (9-20); Calcium 8.8 mg/dL (8.4-10.2); Carbon Dioxide 30 mmol/L (22-32); Chloride 102 mmol/L (98-107); Cholesterol 164 mg/dL (140-199); Estimated Glomerular Filt Rate > 60 mL/min (>60); Glucose 119 mg/dL (80-110); HDL Cholesterol 37 mg/dL (40-60); HEMOLYSIS < 15 (0-50); LDL Cholesterol Calculated 115 mg/dL (<100); Magnesium 2.1 mg/dL (1.6-2.3); Potassium 3.7 mmol/L (3.4-5.1); Sodium 137 mmol/L (137-145); Triglycerides 60 mg/dL (35-150)
--- NOTE | 2023-03-19 08:51 | PC.NURSE ---
Addendum entered by Boaz Prakash R.N. 03/19/23 18:31: Pt anxious at times, requests the room dark, asked for valium. Discussed with Dr. Tellez and was given a one time dose. Pt also has an order for a bedtime dose as well. Original Note: Pt alert, discussing concerns about the bed motion, his PTSD. Discussed plan for the day. Pt restfull at present.
[2023-03-19 09:00] LABS: Troponin I 0.052 ng/mL (0.01-0.034)
[2023-03-19] MEDS: APIXABAN 5 MG TABLET PO ×2 (09:46→21:04)
[2023-03-19] MEDS: dilTIAZem 30 MG TABLET PO ×4 (09:46→21:04)
[2023-03-19] MEDS: SODIUM CHLORIDE 0.9% FLUSH 10 ML IV (09:47)
--- NOTE | 2023-03-19 12:12 | CM.DANOTE ---
DCP: Case received, EMR reviewed and met with patient. Introduced self and role. Was able to obtain information regarding patient's baseline activity status prior to hospitalization. DCP assessment completed with information currently available. Patient is a 72 year old male who admitted yesterday evening to the care of the hospitalist team. PCP: None currently, has been affiliated with the [place]. Payer: [place] [facility]. Patient came to the hospital via ambulance secondary to having increased shortness of breath and coughing. Patient indicated, he does have a history of COPD, and not been feeling well for the past couple of days. Patient was noted to be in afib/a fludder with RVR, possible pneumonia. Patient has history of COPD, PTSD, CAD with CABG. Patient is anxious, easily agitated. He was also noted to have hypetensive urgency. Notes indicate that as far as decision maker, patient refused to provide anyone to contact regarding decision making, refusing emergency contact information. Met with patient in his room. Patient is alert and oriented, anxious about being in the hospital. Asked to see this DC Nurse Charge Rn's face, as masks make him nervous, and does not like anyone standing over him. Actively listened to patient's concerns in a gentle approach. Patient drove here from [place], he does not like the state, and how it has changed, [facility] not like the [facility], and decided to drive himself here. Did not offer any information as far as family. He is independent at baseline, has no current provider in the area. He wants to make sure that they bill the [facility] and not Medicare, let him know that billing has his information. Patient is living [place] on [address] [facility]. He thinks that his fast heart rate is from the albuterol inhaler that he uses. Asked him if he has Medicare as secondary, stated, he does, but does not want that to be billed. He is opened to provider resources. Asked about [facility] assistant boiler operator, and shoe casermanager wellness, stated that they are closed on the weekends, but he can also contact them when he is discharged. He hopes he can leave today, he is getting good care here, but the hospital makes him nervous. He has no way to get home, let him know that this DC electric relay tester can get him a taxi when he is ready to leave. P: DCP to continue to follow for needs. Plan is home when stable, can provide provider resources. Taniya Welch RN/Attendant Lodging Facilities Discharge Planning/Care Management CM Discharge Assessment Start: 03/19/23 12:11 Freq: Status: Active Protocol: Document 03/19/23 12:11 (Rec: 03/19/23 12:12 [id number]) Discharge Planning Assessment Assigned Electric Container Tester Taniya Welch RN/Attendant Lodging Facilities Advance Directives? No History Provided By Patient,Medical Record Prior Living Arrangements Assisted Living Household Members none Type of transporation used prior to Drives own vehicle admit Facility Name Admitted From: [facility] Willing to Return to Facility? Yes Independent with ADL's Yes Is patient alert and oriented? Yes Caregiver for Another No Barriers to Discharge No Discharge Plan Home Transportation Arrangement Taxi Referrals Initiated None needed Whiteboard Updated in Patient Room with Yes name and ext. # of Electric Container Tester Review Status In Process Next Review Type Continued Stay Review
--- NOTE | 2023-03-19 13:37 | PM.PN.1 ---
Subjective Subjective Interval history: Patient indicates that he feels overmedicated on waking this morning and not so clear headed. Prefers to be not on medication that he can. Wants me to go through his medication and put him on the least medication necessary. Exam Vital Signs (past 8 hours): - 03/19/23 08:00 03/19/23 09:46 03/19/23 12:00 Temperature 98.6 F 98.3 F Pulse Rate 71 71 77 Respiratory Rate 22 22 Blood Pressure 122/82 122/82 143/56 H Pulse Oximetry 95 95 Oxygen Flow Rate 0 0 Oxygen Delivery Method Room Air Oxygen Flow Rate 0 Narrative Exam Narrative: General:? Patient is a well-developed, well-nourished in no distress at this time. HEENT:? Normocephalic, atraumatic, extraocular muscles intact, oral pharynx is clear and mucous membranes are moist.? Neck is supple and symmetric, trachea is midline, no adenopathy, no thyroid enlargement, nontender, no masses palpated.? Negative for JVD Chest:? Normal AP diameter and contour without kyphoscoliosis, no nasal flaring, retractions, or tachypneic labored breathing, able to speak in full sentences, no cough observed or shortness of breath. Lungs:? Auscultation of all lung neal are clear without adventitious sounds, wheezes, rhonchi, or rales; however increased resistance at bases and questionable if related to respiratory or cardiac issue. Cardio:? Regular rate and irregular/AFib/ Aflutter rhythm without murmur, rubs, or gallops, no carotid bruit, no cardiac pulsations present. No pedal edema Abdomen:? Soft nontender, negative for organomegaly, or masses.? Bowel sounds are present in all 4 quadrants without guarding or rebound, no CVA tenderness. Musculoskeletal:? Muscle strength and tone are equal within normal limits, no deformity, crepitus, effusions, cyanosis, clubbing or edema present.? Full range of motion intact radial and pedal pulses are normal. Skin:? Warm dry and intact without rashes, ulcerations or petechiae.? Neuro:? Alert and orientated x3, strength is +5/5 in all extremities, sensation to touch intact, no gross deficits noted of cranial nerves. Psych:? Patient has a well-kept appearance, very anxious easily agitated, mental status attitude thought context and judgment are appropriate for age. Objective Labs 03/19/23 04:16 03/19/23 04:16 Labs: Laboratory Results - last 24 hr 03/18/23 03/18/23 03/18/23 20:08 20:08 20:08 WBC 13.9 H RBC 4.46 L Hgb 14.0 Hct 41.5 MCV 93.0 MCH 31.4 MCHC 33.8 RDW 13.6 Plt Count 181 Neut % (Auto) 89.1 H Lymph % (Auto) 5.0 L [place] % (Auto) 5.4 Eos % (Auto) 0.2 L Baso % (Auto) 0.3 Neut # (Auto) 45485 H Lymph # (Auto) 700 L [place] # (Auto) 800 Eos # (Auto) 0 Baso # (Auto) 0 PT 13.4 H INR 1.2 APTT 33 Sodium 138 Potassium 4.0 Chloride 100 Carbon Dioxide 29 BUN 19 Creatinine 0.65 L Estimated GFR > 60 BUN/Creatinine Ratio 29.2 H Glucose 124 H Lactate Calcium 9.1 Magnesium 2.0 Total Bilirubin 1.6 H AST 28 ALT 42 Alkaline Phosphatase 65 Total Creatine Kinase 76 CK-MB (CK-2) TNP CK-MB (CK-2) Rel Index TNP Troponin I 0.059 H NT-Pro-B Natriuret Pep Total Protein 7.5 Albumin 4.3 Globulin 3.2 Albumin/Globulin Ratio 1.3 Triglycerides Cholesterol LDL Cholesterol, Calc HDL Cholesterol Lipase 20 L Procalcitonin TSH Free T4 Urine Color Urine Appearance Urine pH Ur Specific [place] Urine Protein Urine Glucose (UA) Urine Ketones Urine Occult Blood Urine Nitrate Urine Bilirubin Urine Urobilinogen Ur Leukocyte Esterase Urine RBC Urine WBC Urine Bacteria Ur Culture Indicated? Ethyl Alcohol Chlamy pneumoniae PCR Adenovirus (PCR) B. pertussis DNA (PCR) B.parapertussis DNA PCR Coronavirus OC43 (PCR) Coronavirus HKU1 (PCR) Coronavirus 229E (PCR) SARS-CoV-2 (PCR) Coronavirus NL63 (PCR) Human Metapneumovir PCR Influenza Type A (PCR) Influenza Type B (PCR) M. pneumoniae (PCR) Parainfluenza 1 (PCR) Parainfluenza 2 (PCR) Parainfluenza 3 (PCR) Parainfluenza 4 (PCR) RSV (PCR) Entero/Rhino (PCR) 03/18/23 03/18/23 03/18/23 20:08 20:08 20:08 WBC RBC Hgb Hct MCV MCH MCHC RDW Plt Count Neut % (Auto) Lymph % (Auto) [place] % (Auto) Eos % (Auto) Baso % (Auto) Neut # (Auto) Lymph # (Auto) [place] # (Auto) Eos # (Auto) Baso # (Auto) PT INR APTT Sodium Potassium Chloride Carbon Dioxide BUN Creatinine Estimated GFR BUN/Creatinine Ratio Glucose Lactate 1.5 Calcium Magnesium Total Bilirubin AST ALT Alkaline Phosphatase Total Creatine Kinase CK-MB (CK-2) CK-MB (CK-2) Rel Index Troponin I NT-Pro-B Natriuret Pep Total Protein Albumin Globulin Albumin/Globulin Ratio Triglycerides Cholesterol LDL Cholesterol, Calc HDL Cholesterol Lipase Procalcitonin 0.06 TSH 0.900 Free T4 1.00 Urine Color Urine Appearance Urine pH Ur Specific [place] Urine Protein Urine Glucose (UA) Urine Ketones Urine Occult Blood Urine Nitrate Urine Bilirubin Urine Urobilinogen Ur Leukocyte Esterase Urine RBC Urine WBC Urine Bacteria Ur Culture Indicated? Ethyl Alcohol Chlamy pneumoniae PCR Adenovirus (PCR) B. pertussis DNA (PCR) B.parapertussis DNA PCR Coronavirus OC43 (PCR) Coronavirus HKU1 (PCR) Coronavirus 229E (PCR) SARS-CoV-2 (PCR) Coronavirus NL63 (PCR) Human Metapneumovir PCR Influenza Type A (PCR) Influenza Type B (PCR) M. pneumoniae (PCR) Parainfluenza 1 (PCR) Parainfluenza 2 (PCR) Parainfluenza 3 (PCR) Parainfluenza 4 (PCR) RSV (PCR) Entero/Rhino (PCR) 03/18/23 03/18/23 03/18/23 20:08 20:08 20:33 WBC RBC Hgb Hct MCV MCH MCHC RDW Plt Count Neut % (Auto) Lymph % (Auto) [place] % (Auto) Eos % (Auto) Baso % (Auto) Neut # (Auto) Lymph # (Auto) [place] # (Auto) Eos # (Auto) Baso # (Auto) PT INR APTT Sodium Potassium Chloride Carbon Dioxide BUN Creatinine Estimated GFR BUN/Creatinine Ratio Glucose Lactate Calcium Magnesium Total Bilirubin AST ALT Alkaline Phosphatase Total Creatine Kinase CK-MB (CK-2) CK-MB (CK-2) Rel Index Troponin I NT-Pro-B Natriuret Pep 1140 H Total Protein Albumin Globulin Albumin/Globulin Ratio Triglycerides Cholesterol LDL Cholesterol, Calc HDL Cholesterol Lipase Procalcitonin TSH Free T4 Urine Color Urine Appearance Urine pH Ur Specific [place] Urine Protein Urine Glucose (UA) Urine Ketones Urine Occult Blood Urine Nitrate Urine Bilirubin Urine Urobilinogen Ur Leukocyte Esterase Urine RBC Urine WBC Urine Bacteria Ur Culture Indicated? Ethyl Alcohol < 10 Chlamy pneumoniae PCR Not detected Adenovirus (PCR) Not detected B. pertussis DNA (PCR) Not detected B.parapertussis DNA PCR Not detected Coronavirus OC43 (PCR) Not detected Coronavirus HKU1 (PCR) Not detected Coronavirus 229E (PCR) Not detected SARS-CoV-2 (PCR) Not detected Coronavirus NL63 (PCR) Not detected Human Metapneumovir PCR Not detected Influenza Type A (PCR) Not detected Influenza Type B (PCR) Not detected M. pneumoniae (PCR) Not detected Parainfluenza 1 (PCR) Not detected Parainfluenza 2 (PCR) Not detected Parainfluenza 3 (PCR) Not detected Parainfluenza 4 (PCR) Not detected RSV (PCR) Not detected Entero/Rhino (PCR) Not detected 03/19/23 03/19/23 03/19/23 02:04 02:20 04:16 WBC 11.8 H RBC 4.03 L Hgb 12.6 L Hct 37.4 L MCV 92.8 MCH 31.3 MCHC 33.8 RDW 13.6 Plt Count 170 Neut % (Auto) 77.9 H Lymph % (Auto) 13.6 L [place] % (Auto) 7.6 Eos % (Auto) 0.4 L Baso % (Auto) 0.5 Neut # (Auto) 9200 H Lymph # (Auto) 1600 [place] # (Auto) 900 Eos # (Auto) 0 Baso # (Auto) 100 PT INR APTT Sodium Potassium Chloride Carbon Dioxide BUN Creatinine Estimated GFR BUN/Creatinine Ratio Glucose Lactate Calcium Magnesium Total Bilirubin AST ALT Alkaline Phosphatase Total Creatine Kinase CK-MB (CK-2) CK-MB (CK-2) Rel Index Troponin I 0.061 H NT-Pro-B Natriuret Pep Total Protein Albumin Globulin Albumin/Globulin Ratio Triglycerides Cholesterol LDL Cholesterol, Calc HDL Cholesterol Lipase Procalcitonin TSH Free T4 Urine Color Yellow Urine Appearance Clear Urine pH 7.5 Ur Specific [place] 1.010 Urine Protein Negative Urine Glucose (UA) Negative Urine Ketones Negative Urine Occult Blood Negative Urine Nitrate Negative Urine Bilirubin Negative Urine Urobilinogen 0.2 Ur Leukocyte Esterase Negative Urine RBC None seen Urine WBC None seen Urine Bacteria None seen Ur Culture Indicated? Cult not indicated Ethyl Alcohol Chlamy pneumoniae PCR Adenovirus (PCR) B. pertussis DNA (PCR) B.parapertussis DNA PCR Coronavirus OC43 (PCR) Coronavirus HKU1 (PCR) Coronavirus 229E (PCR) SARS-CoV-2 (PCR) Coronavirus NL63 (PCR) Human Metapneumovir PCR Influenza Type A (PCR) Influenza Type B (PCR) M. pneumoniae (PCR) Parainfluenza 1 (PCR) Parainfluenza 2 (PCR) Parainfluenza 3 (PCR) Parainfluenza 4 (PCR) RSV (PCR) Entero/Rhino (PCR) 03/19/23 03/19/23 04:16 08:25 WBC RBC Hgb Hct MCV MCH MCHC RDW Plt Count Neut % (Auto) Lymph % (Auto) [place] % (Auto) Eos % (Auto) Baso % (Auto) Neut # (Auto) Lymph # (Auto) [place] # (Auto) Eos # (Auto) Baso # (Auto) PT INR APTT Sodium 137 Potassium 3.7 Chloride 102 Carbon Dioxide 30 BUN 17 Creatinine 0.67 Estimated GFR > 60 BUN/Creatinine Ratio 25.4 H Glucose 119 H Lactate Calcium 8.8 Magnesium 2.1 Total Bilirubin AST ALT Alkaline Phosphatase Total Creatine Kinase CK-MB (CK-2) CK-MB (CK-2) Rel Index Troponin I 0.052 H NT-Pro-B Natriuret Pep Total Protein Albumin Globulin Albumin/Globulin Ratio Triglycerides 60 Cholesterol 164 LDL Cholesterol, Calc 115 H HDL Cholesterol 37 L Lipase Procalcitonin TSH Free T4 Urine Color Urine Appearance Urine pH Ur Specific [place] Urine Protein Urine Glucose (UA) Urine Ketones Urine Occult Blood Urine Nitrate Urine Bilirubin Urine Urobilinogen Ur Leukocyte Esterase Urine RBC Urine WBC Urine Bacteria Ur Culture Indicated? Ethyl Alcohol Chlamy pneumoniae PCR Adenovirus (PCR) B. pertussis DNA (PCR) B.parapertussis DNA PCR Coronavirus OC43 (PCR) Coronavirus HKU1 (PCR) Coronavirus 229E (PCR) SARS-CoV-2 (PCR) Coronavirus NL63 (PCR) Human Metapneumovir PCR Influenza Type A (PCR) Influenza Type B (PCR) M. pneumoniae (PCR) Parainfluenza 1 (PCR) Parainfluenza 2 (PCR) Parainfluenza 3 (PCR) Parainfluenza 4 (PCR) RSV (PCR) Entero/Rhino (PCR) [facility] Medical History CAD (coronary artery disease) of bypass graft COPD (chronic obstructive pulmonary disease) PTSD (post-traumatic stress disorder) Surgical History History of coronary artery bypass graft Family History (Updated 03/19/23 @ 02:07 by ELVIRA Gross) Father No problems noted. Mother No problems noted. Social History household members: none Smoking Status: Former smoker Assessment & Plan Assessment & Plan narrative: 1. Atrial fibrillation/flutter, acute, present on admission-patient currently asymptomatic and rate controlled -In ED: HR 120 and 140, with hypertensive urgency?-today pulse and blood pressure settled -In ED: initial bolus diltiazem failed -paced on a diltiazem drip -heart rate dropped lower 80-100 he developed atrial flutter in the ED.- transitioned 5drip to 120 Cardizem CD PO-once. -continue Cardizem 60 mg q.6 hours, titrate as needed -admit temp 97?, BP 142/85, HR 82 in AFib, RR 13, O2 saturation 96% on room air. -On idiag -[employer]s ordered -continue -TSH, magnesium, BNP, lipids, A1c -thyroid tests are normal, magnesium is normal, BNP elevated consistent with heart failure as cause of difficulty breathing, hemoglobin A1c pending, slight elevation of LDL and slight decrease in HDL -echo ordered -results still pending 2. Myocardial injury likely demand secondary to atrial fibrillation, acute, present on admission-stable/asymptomatic -with history of CAD/CABG -initial troponin 0.059 -troponin has trended downward -initial EKG atrial flutter, rate 82, with incomplete RBBB 3. Thrombocytosis, mild, acute, present on admission -WBC 13.9 neut # 12,300, lactate, procalcitonin, respiratory panel to include COVID are all negative.? -white blood count now 11.8 -Chest x-ray demonstrates predominant appearance of right hilum,? mild right lung base opacities possibly developing pneumonia, and borderline cardiomegaly.-repeat chest x-ray confirms no pneumonia and has no evidence of CHF at this time. -patient given azithromycin/Rocephin in ED -can discontinue once blood cultures are proven negative -holding antibiotics at this time as lactate and procalcitonin are both negative not entirely convinced this is infectious process, will monitor and treat based on culture and laboratory findings -continue to trend white count and inflammatory markers -blood cultures pending, sputum culture if patient produces 4. Hypertensive urgency without the diagnosis of hypertension, acute, present on admission -patient placed on carvedilol 60 mg q.6 hours will titrate as needed -ED:? BP is 200/107, 178/103, 170/85, 164/101 -improved today to 143/56 most recently 5. COPD, chronic, present on admission -patient is stable and appears asymptomatic. -respiratory consult for nebulizers if needed Follow labs and clinically. Code status:? Full Surrogate decision maker:? Patient refused to provide any anyone to contact regarding surrogacy decision-making/POA-also noted he refused to provide emergency contact information to admitting desk. Quality VTE Deep Vein Thrombosis/Pulmonary Embolism Present on Admission: No
--- NOTE | 2023-03-19 13:42 | DI.RAD.S_ITS ---
PROCEDURE: XR CHEST 2V INDICATIONS: Assess resolution of x-ray findings TECHNIQUE: 2 views of the chest were acquired. COMPARISON: [facility], , XR CHEST 1V, 03/18/2023, 20:02. FINDINGS: Surgical changes and devices: Midline sternal wires present. Left atrial appendage occlusion device. Lungs and pleura: There is hyperinflation and chronic interstitial changes without focal infiltrate, pleural effusion or pneumothorax. Mediastinum: Mediastinal contours are normal. Heart size is normal. Bones and chest wall: No suspicious bony abnormalities. Soft tissues appear unremarkable. IMPRESSION: Hyperinflation and chronic interstitial changes without focal infiltrate Approved by: Arcenio Harvey M.D. on 03/19/2023 at 13:37
[2023-03-19 14:32] LABS: Troponin I 0.045 ng/mL (0.01-0.034)
[2023-03-19] MEDS: SENNOSIDES 8.6 MG TABLET 17.2 MG PO (21:08)
--- NOTE | 2023-03-19 22:37 | PC.NURSE ---
Pt alert and oriented x 4, refusing bed alarm and stating that he has PTS due to past history with the medical staff, stating they have done unnecessary procedures on me, including open heart surgery and the only reason I have atrial fibrilation is due to my albuterol usage, I am a highly intelligent man and feel that the doctors is making me take all this medications, this nurse explained to the patient what each medication was for, specially the diltiazem which is to control his heart rate. This told the patient that he had the right to refuse all his medication, which he replied, if I don't take this medication, the doctor that is coming in the morning will be mad at me, Pt refused to have his iv line flush and wasn't sure if he would take the diltiazem at 0300 since the medication is prescribed for every 6 hours.
[2023-03-20] VITALS: BP 132/78; PULSE 70; RESP 17; TEMP 36.8; O2SAT 97
[2023-03-20 00:11] VITALS: O2SAT 94
[2023-03-20 04:00] VITALS: BP 129/84; PULSE 79; RESP 18; TEMP 36.7; O2SAT 95
[2023-03-20 05:28] LABS: Add Manual Diff / Slide Review NO; Basophils Absolute Auto 0 /uL (0-100); Basophils Percent Auto 0.5 % (0-2); Eosinophils Absolute Auto 200 /uL (0-450); Eosinophils Percent Auto 2.3 % (2-4); Hematocrit 37.4 % (41-53); Hemoglobin 12.6 g/dL (13.5-17.5); Lymphocytes Absolute Auto 1800 /uL (1100-4500); Lymphocytes Percent Auto 18.2 % (25-40); Mean Corpuscular HGB Conc 33.7 % (30-36); Mean Corpuscular Hemoglobin 31.4 PG (26-34); Mean Corpuscular Volume 93.4 fL (80-100); Monocytes Absolute Auto 900 /uL (0-900); Monocytes Percent Auto 9.5 % (3-14); Neutrophils Absolute Auto 6900 /uL (1500-7000); Neutrophils Percent Auto 69.5 % (50-75); Platelet Count 171 X10^3/uL (150-400); Red Blood Cell Count 4.01 X10^6/uL (4.5-5.9); Red Cell Distribution Width 13.8 % (11.6-14.8); White Blood Cell Count 9.9 X10^3/uL (4.5-11.0)
[2023-03-20 05:31] LABS: Alanine Aminotransferase 28 IU/L (<50); Albumin 3.7 g/dL (3.5-5.0); Albumin Globulin Ratio 1.4 (1.0-2.8); Alkaline Phosphatase 56 U/L (38-126); Aspartate Aminotransferase 20 IU/L (17-59); BUN Creatinine Ratio 26.4 (6-22); Bilirubin Total 1.7 mg/dL (0.2-1.3); Bilirubin Unconjugated 1.3 mg/dL (0.0-1.1); Blood Urea Nitrogen 19 mg/dL (9-20); Calcium 8.7 mg/dL (8.4-10.2); Carbon Dioxide 26 mmol/L (22-32); Chloride 102 mmol/L (98-107); Estimated Glomerular Filt Rate > 60 mL/min (>60); Globulin 2.7 g/dL (1.7-4.1); Glucose 102 mg/dL (80-110); HEMOLYSIS < 15 (0-50); Potassium 3.4 mmol/L (3.4-5.1); Sodium 137 mmol/L (137-145); Total Protein 6.4 g/dL (6.3-8.2)
[2023-03-20 05:41] LABS: NT-proBNP (BNP-Adult 18+) 1930 pg/mL (<125); Troponin I 0.034 ng/mL (0.01-0.034)
[2023-03-20 06:19] LABS: x Labcorp Estim. Avg Glu (eAG) 120 mg/dL (.); x Labcorp Hemoglobin A1c 5.8 % (4.8-5.6)
[2023-03-20] MEDS: POTASSIUM CHLORIDE 20 MEQ TAB 40 MEQ PO (08:38)
[2023-03-20] MEDS: SODIUM CHLORIDE 0.9% FLUSH 10 ML IV (08:40)
[2023-03-20 08:45] VITALS: BP 148/87; PULSE 76; RESP 18; TEMP 36.6; O2SAT 96
--- NOTE | 2023-03-20 08:55 | PC.NURSE ---
Addendum entered by Susanne Krueger R.N. 03/20/23 09:19: Provider Dr. Lopez notified. Provider asked this RN to tell pt she prescribed those medications because the [place] will cover them and will benefit the patient. Notified patient that provider would like pt to take the metoprolol, lasix, and eliquis in order for him to be stable to discharge. Patient started to get angry stating Get the doctor in here, I don't want any 'he said, she said' conversations. I will not have anyone tell me I have to take a medication. They have interfered with my driving in the past. Provider notified again and will be in to see patient. Original Note: Pt refusing his morning medications: metoprolol, lasix, and eliquis. Pt informed of the benefits of these medications for his cardiac function. Pt states These medications interfere with my ability to drive and I don't want to risk the safety of others. Medications not given per pt request. Informed patient there is currently not a time stated by the physician of when he will be discharged. Pt adamant that he will be discharging today and will need to speak to provider and social work job titles.
--- NOTE | 2023-03-20 10:24 | P.DS_ITS ---
History of Present Illness History of Present Illness Date Patient Seen: 03/20/23 Chief complaint: sob, afib / rvr Discharge Providers Provider Date of admission: 03/18/23 22:35 Discharge Date: 03/20/23 Discharge provider: Dominga Sow MD Summary Hospital Course Discharge Diagnosis: Atrial fibrillation/flutter, acute, present on admission Elevated BNP CHF Elevated troponin consistent with demand ischemia RBBB, incomplete Leukocytosis Concern for Bacteremia Concern for pneumonia Hypertension Shortness of breath Orthopnea Chornic COPD Elevated bilirubin Decreased hearing Comorbities/past history: CAD (coronary artery disease) of bypass graft PTSD (post-traumatic stress disorder) History of coronary artery bypass graft surgery Hospital Course: Rosalino Vegas is a 72-year-old male with a past medical history of COPD, PTSD, CAD with CABG who presented to the ED with several days of cough and wors ening shortness of breath, found to be in atrial fibrillation with heart rates between 120 and 140, with hypertensive urgency BP is 200/107, 178/103, 170/85, 164/101, initial bolus diltiazem was attempted, heart rate was not improved, patient was paced on a diltiazem drip the patient did respond positively and when patient stabilized on intravenous diltiazem he was transitioned to oral diltiazem 30 mg every 6 hours and remained rate controlled and asymptomatic. On admit patient denies chest pain, shortness in breath, headache, changes in vision, difficulty swallowing, speech impairment, weakness, numbness, tingling, difficulty with ambulation, recent falls, head injury, LOC, fever, body aches, chills, cough, recent exposure to illness, abdominal pain, nausea, vomiting, urinary incontinence/retention, dysuria, frequency, urgency, hematuria, bowel changes, constipation, incontinence, melena, rashes, recent changes to medication, illness, injury, or trauma.? Patient states he has no history of atrial fibrillation takes no medications other than albuterol inhaler, and patient was extraordinarily anxious and agitated requesting Valium as he states that he did not tolerate Ativan in the past.? Patient did require a couple doses of diazepam 2 mg to settle anxiety and sleep. Since the patient has a [facility] Medical status, he was transitioned prior to discharge to medication that the [facility] has on formulary. Prescriptions were written for a 14 day supply and also given a prescription for 30 day supply send to the [facility] to have delivered. Patient needs to establish with the [facility] for follow-up care. During the hospital stay, it was clear that the patient was having a difficult time understanding that he could get atrial fibrillation when he did not have for and that the atrial fibrillation was part of the cause of congestive heart failure and therefore both need to be treated on discharge. Was adamant that he was ?just fine ?in the last 3 years not taking any medication. Focused on treating shortness of breath with albuterol inhaler however it was explained to him that the shortness of breath was related to the atrial fibrillation/congestive heart failure and therefore the albuterol when only aggravated rather than treated. He does have underlying COPD in his understandable why he has a albuterol to use as needed. Hopefully with proper treatment of the atrial fibrillation and congestive heart failure, the need for albuterol will be significantly less. Heart rate on the day of discharge was 76 beats per minute. Blood pressure was somewhat elevated at 148/87 after dis cussion of why he would not take his medication on the morning of discharge. Patient adamantly would not take the medications that he will be discharged on in the morning of discharge. He chose instead to get the prescriptions at a pharmacy and decide whether to take him after he goes home. A ride was arranged for discharge to his home. Status at Discharge Cognitive/behavioral status at discharge: at baseline, oriented Functional status at discharge: independent ambulation Overall status at discharge: patient is back to baseline Time Spent with Patient Time spent: Greater than 30 minutes Exam Vital Signs (past 8 hours): - 03/20/23 04:00 03/20/23 08:45 Temperature 98.0 F 98 F Pulse Rate 79 76 Respiratory Rate 18 18 Blood Pressure 129/84 148/87 H Pulse Oximetry 95 96 Oxygen Delivery Method Room Air Oxygen Flow Rate 2 Narrative Exam Narrative: General:? Patient is a well-developed, well-nourished in no distress at this time. HEENT:? Normocephalic, atraumatic, extraocular muscles intact, trachea midline. Decreased hearing. Chest:? Normal AP diameter and contour without kyphoscoliosis, no nasal flaring, retractions, or tachypneic labored breathing, able to speak in full sentences, no cough observed or shortness of breath. Lungs:? Auscultation of all lung neal are clear without adventitious sounds, wheezes, rhonchi, or rales Cardio:? Regular rate and irregular/AFib/ Aflutter rhythm without murmur.? No pedal edema Abdomen:? Soft nontender, negative for organomegaly, or masses.? Bowel sounds are present in all 4 quadrants without guarding or rebound, no CVA tenderness. Musculoskeletal:? Muscle strength and tone are equal within normal limits, no deformity, crepitus, effusions, cyanosis, clubbing or edema present.? Full range of motion intact radial and pedal pulses are normal. Skin:? Warm dry and intact without rashes, ulcerations or petechiae.? Neuro:? Alert and orientated x3, strength is +5/5 in all extremities, sensation to touch intact, no gross deficits noted of cranial nerves. Psych:? Patient has a well-kept appearance, very anxious, easily agitated, mental status attitude thought context and judgment are appropriate for age Objective Labs 03/20/23 04:34 03/20/23 04:34 Labs: Laboratory Results - last 24 hr 03/18/23 03/19/23 03/20/23 20:08 14:00 04:34 WBC RBC Hgb Hct MCV MCH MCHC RDW Plt Count Neut % (Auto) Lymph % (Auto) [place] % (Auto) Eos % (Auto) Baso % (Auto) Neut # (Auto) Lymph # (Auto) [place] # (Auto) Eos # (Auto) Baso # (Auto) Sodium Potassium Chloride Carbon Dioxide BUN Creatinine Estimated GFR BUN/Creatinine Ratio Glucose Hgb A1c (Ref Lab) 5.8 H Estim Average Glucose 120 Calcium Total Bilirubin Conjugated Bilirubin Unconjugated Bilirubin AST ALT Alkaline Phosphatase Troponin I 0.045 H 0.034 NT-Pro-B Natriuret Pep 1930 H Total Protein Albumin Globulin Albumin/Globulin Ratio 03/20/23 03/20/23 04:34 04:34 WBC 9.9 RBC 4.01 L Hgb 12.6 L Hct 37.4 L MCV 93.4 MCH 31.4 MCHC 33.7 RDW 13.8 Plt Count 171 Neut % (Auto) 69.5 Lymph % (Auto) 18.2 L [place] % (Auto) 9.5 Eos % (Auto) 2.3 Baso % (Auto) 0.5 Neut # (Auto) 6900 Lymph # (Auto) 1800 [place] # (Auto) 900 Eos # (Auto) 200 Baso # (Auto) 0 Sodium 137 Potassium 3.4 Chloride 102 Carbon Dioxide 26 BUN 19 Creatinine 0.72 Estimated GFR > 60 BUN/Creatinine Ratio 26.4 H Glucose 102 Hgb A1c (Ref Lab) Estim Average Glucose Calcium 8.7 Total Bilirubin 1.7 H Conjugated Bilirubin 0.0 Unconjugated Bilirubin 1.3 H AST 20 ALT 28 Alkaline Phosphatase 56 Troponin I NT-Pro-B Natriuret Pep Total Protein 6.4 Albumin 3.7 Globulin 2.7 Albumin/Globulin Ratio 1.4 PFSH Medical History CAD (coronary artery disease) of bypass graft COPD (chronic obstructive pulmonary disease) PTSD (post-traumatic stress disorder) Surgical History History of coronary artery bypass graft Family History (Updated 03/19/23 @ 02:07 by ELVIRA Gross) Father No problems noted. Mother No problems noted. Social History household members: none Smoking Status: Former smoker Discharge Plan Discharge Plan Patient Disposition: Home Visit Report/Discharge Packet Stand Alone Forms: Patient Portal/API, Stroke Signs & Symptoms Quality VTE Deep Vein Thrombosis/Pulmonary Embolism Present on Admission: No
--- NOTE | 2023-03-20 10:58 | CM.DPC ---
DCP Cont: Patient is discharging home today. Called him a taxi and voucher, will cost $25.00, patient is to be picked up at ER entrance at 1300. Giving patient a copy of providers at [facility] to establish a new patient appointment. Let him know that he can use his Medicare coverage for appointments. P: Patient is discharging home today, will be picked up at 1300. Taniya Welch RN/Supervisor [employer]
--- NOTE | 2023-03-20 12:53 | PC.NURSE ---
Discharge education given to pt, including prescriptions. Provider sent over a 2 week supply of prescriptions to patient's local pharmacy ([facility]) for patient to obtain in the meantime as [facility]. The 30 day supply of prescriptions were given to patient as a paper prescription to [facility] to the [facility] once he's able to stop by. Recommended pt [facility] to the [facility] himself tomorrow to hand them the paper prescription and get that settled. Pt states he will try his best to make it over to the [facility], however states he is still not going to take metoprolol because of his past experience with the medication causing side effects that affect his heart. Informed patient that we are here to give him education regarding his condition and benefits/risks of medications, and he is still able to do as he wants when he leaves the hospital. Offered to clarify medications with the provider, however patient refuses and continuously states he will most likely not take the metoprolol. Pt was also sent home with a one dose supply of the following medications: eliquis, lasix, potassium, and metoprolol from Dr. Tellez. Handed pt a list of providers that was given by SHELBY, pt kindly accepted and verbalized understanding of need to contact a new provider to make an appointment. Wheeled out by nursing staff at 1255pm. Pt was given a taxi voucher as his transportation back home.
== END 2023-03-20 13:03 | disposition home or self-care (01) | DRG 308 ==
LOC: ED 21:40 → AC 22:36
PROVIDERS: Neuromusculoskeletal Medicine, Sports Medicine; Admitting Provider Nurse Practitioner Family; Emergency Provider Emergency Medicine; Referring Provider Emergency Medicine; Visit Provider Nurse Practitioner Family
DX: I48.92 Unspecified atrial flutter (principal); J18.9 Pneumonia, unspecified organism; I24.8 Other forms of acute ischemic heart disease; I25.10 Atherosclerotic heart disease of native coronary artery without angina pectoris; I16.0 Hypertensive urgency; D75.839 Thrombocytosis, unspecified; J44.9 Chronic obstructive pulmonary disease, unspecified; I48.91 Unspecified atrial fibrillation; I11.0 Hypertensive heart disease with heart failure; I50.9 Heart failure, unspecified; Z95.1 Presence of aortocoronary bypass graft; Z87.891 Personal history of nicotine dependence; Z20.822 Contact with and (suspected) exposure to COVID-19
CPT/HCPCS: 36415; 71045; 71046; 80048; 80053; 80061; 80076; 80320; 81001; 82550; 83036; 83605; 83690; 83735; 83880; 84145; 84439; 84443; 84484; 85025; 85610; 85730; 87040; 87633; 93005; 93010; 93306; 96365; 96366; 96367; 96368; 96376; 99284; J0696

== ENCOUNTER 2023-07-06 10:10 | Observation (INO) | payer OTHER, SELFPAY ==
[2023-03-19 01:15] VITALS: BMI 24.3
[2023-07-06] VITALS (23 sets, daily range): BP systolic 136–215; BP diastolic 69–145; PULSE 59–158; RESP 14–32; TEMP 36.4–36.8; O2SAT 92–98; BMI 24.3
--- NOTE | 2023-07-06 10:20 | DI.RAD.S_ITS ---
PROCEDURE: XR CHEST 1V INDICATIONS: chest pain TECHNIQUE: One view of the chest was acquired. COMPARISON: [facility], CR, XR CHEST 2V, 03/19/2023, 14:00. [facility], CR, XR CHEST 1V, 03/18/2023, 20:02. FINDINGS: Surgical changes and devices: Sternotomy wires and mediastinal clips are present. Atrial appendage clip is again seen. Lungs and pleura: Lungs are clear. No pleural effusions or pneumothorax. Mediastinum: Cardiomediastinal silhouette is stable in appearance with stable prominence of the pulmonary arteries. Bones and chest wall: No suspicious bony lesions. Overlying soft tissues appear unremarkable. IMPRESSION: No acute cardiopulmonary abnormality. Approved by: Tigao Bay M.D. on 07/06/2023 at 12:04
[2023-07-06 10:42] LABS: INR 1.3 (0.9-1.3); Prothrombin Time 14.6 SECONDS (10.1-12.7)
[2023-07-06 10:44] LABS: Alanine Aminotransferase 28 IU/L (<50); Albumin 4.5 g/dL (3.5-5.0); Albumin Globulin Ratio 1.4 (1.0-2.8); Alkaline Phosphatase 67 U/L (38-126); Aspartate Aminotransferase 28 IU/L (17-59); BUN Creatinine Ratio 18.6 (6-22); Bilirubin Total 1.4 mg/dL (0.2-1.3); Blood Urea Nitrogen 18 mg/dL (9-20); Calcium 9.7 mg/dL (8.4-10.2); Carbon Dioxide 24 mmol/L (22-32); Chloride 102 mmol/L (98-107); Creatine Kinase 89 U/L (55-170); Estimated Glomerular Filt Rate > 60 mL/min (>60); Globulin 3.3 g/dL (1.7-4.1); Glucose 121 mg/dL (80-110); HEMOLYSIS 20 (0-50); Lipase 45 U/L (23-300); Magnesium 2.2 mg/dL (1.6-2.3); Potassium 3.7 mmol/L (3.4-5.1); Sodium 137 mmol/L (137-145); Total Protein 7.8 g/dL (6.3-8.2)
[2023-07-06 10:45] LABS: PTT Partial Thromboplastin Tim 35 SECONDS (26-36)
[2023-07-06 10:52] LABS: Add Manual Diff / Slide Review NO; Basophils Absolute Auto 100 /uL (0-100); Basophils Percent Auto 0.5 % (0-2); Eosinophils Absolute Auto 100 /uL (0-450); Eosinophils Percent Auto 1.3 % (2-4); Hematocrit 44.4 % (41-53); Hemoglobin 15.1 g/dL (13.5-17.5); Lymphocytes Absolute Auto 2100 /uL (1100-4500); Lymphocytes Percent Auto 19.4 % (25-40); Mean Corpuscular HGB Conc 33.9 % (30-36); Mean Corpuscular Hemoglobin 31.1 PG (26-34); Mean Corpuscular Volume 91.9 fL (80-100); Monocytes Absolute Auto 900 /uL (0-900); Monocytes Percent Auto 8.6 % (3-14); Neutrophils Absolute Auto 7500 /uL (1500-7000); Neutrophils Percent Auto 70.2 % (50-75); Platelet Count 182 X10^3/uL (150-400); Red Blood Cell Count 4.84 X10^6/uL (4.5-5.9); White Blood Cell Count 10.8 X10^3/uL (4.5-11.0)
[2023-07-06 10:56] LABS: Troponin I 0.024 ng/mL (0.01-0.034)
--- NOTE | 2023-07-06 12:36 | ED_ITS ---
HPI - Arrhythmia/Palpitations General Chief Complaint: Arrhythmia/Palpitations Stated Complaint: Afib Time Seen by Provider: 07/06/23 10:41 Source: patient Mode of arrival: Wheelchair History of Present Illness HPI narrative: Patient here for complains of palpitations off and on since he was discharged here March 20, 2023. Patient has not been taking his prescribed medications including Eliquis since then. Patient has a complains of some ankle edema as well. Denies any chest pain. Complaints of palpitations. Denies any recent illness. No fever chills cough cold or congestion. Patient states he prefers not to be on a beta-elliot but atenolol has worked for him in the past. Patient in no distress at this time. Patient very calm and collected and cooperative. Related Data Previous Rx's Medication Instructions Recorded albuterol sulfate 2.5 mg/0.5 mL 5 mg inhalation Q6H PRN shortness 07/07/23 solution for nebulization of breath or wheezing 30 days #30 ea albuterol sulfate 90 mcg/actuation 1 inh inhalation QID PRN shortness 07/07/23 aerosol inhaler of breath or wheezing 30 days #8.5 grams apixaban 5 mg tablet (Eliquis) 5 mg PO BID 90 days #180 tabs 07/07/23 diltiazem HCl 180 mg capsule,24 180 mg PO DAILY 90 days #90 caps 07/07/23 hr,extended release diltiazem HCl 180 mg 180 mg PO DAILY 90 days #90 tabs 07/07/23 tablet,extended release 24 hr nebulizer and compressor #1 ea 07/07/23 Allergies Allergy/AdvReac Type Severity Reaction Status Date / Time acetaminophen [From Tylenol] Allergy Unknown Verified 03/18/23 20:08 levothyroxine Allergy Unknown Verified 03/18/23 20:08 metoprolol Allergy Unknown Verified 07/06/23 10:19 Review of Systems Review of Systems Narrative: GENERAL: negative chills, fatigue, malaise, fever, sweats. HEENT: negative sinus pain, ear pain, sore throat RESPIRATORY: negative dyspnea, cough CARDIOVASCULAR: negative chest pain, positive palpitations GASTROINTESTINAL: negative nausea, vomiting, abdominal pain : negative dysuria, frequency, hematuria MUSCULOSKELETAL: negative muscle or bony pain SKIN: negative rash, skin lesions NEUROLOGIC: negative weakness, numbness ROS Unobtainable: All systems reviewed & are unremarkable except as noted in HPI and below Patient History Medical History CAD (coronary artery disease) of bypass graft COPD (chronic obstructive pulmonary disease) PTSD (post-traumatic stress disorder) Surgical History History of coronary artery bypass graft Family History Father No problems noted. Mother No problems noted. Social History household members: none Smoking Status: Former smoker Smoking Status: Former smoker alcohol intake frequency: holidays/special occasions only Substance Use Type: does not use Exam Narrative Exam Narrative: GENERAL: in no distress, not toxic not dyspneic HEAD: Normocephalic. EYES: Pupils equal round ENT: Mucous membranes moist. NECK: Trachea midline. CARDIOVASCULAR: Tachycardia with irregular irregular rate and rhythm RESPIRATORY: Clear to auscultation. Breath sounds equal bilaterally. No wheezes, rales, or rhonchi. GASTROINTESTINAL: Abdomen soft, non-tender EXTREMITIES: No gross deformities. 2+ bilateral ankle edema BACK: No flank tenderness. NEURO: AOx4. SKIN: Warm and dry PSYCH: Not anxious, is cooperative Initial Vital Signs Initial Vital Signs: Vital Signs Temperature 97.5 F L 07/06/23 10:11 Pulse Rate 158 H 07/06/23 10:11 Respiratory Rate 22 07/06/23 10:11 Blood Pressure 136/96 H 07/06/23 10:11 Pulse Oximetry 94 07/06/23 10:11 Oxygen Delivery Method Room Air 07/06/23 10:11 Course Orders Ordered: Discontinued Medications Albuterol (Albuterol 2.5 Mg/3 Ml Neb (Adult)) 2.5 mg INH [id number] CRISTEL Last Admin: 07/07/23 13:23 Dose: Not Given Documented By: Admin: 07/07/23 07:35 Dose: Not Given Documented By: Admin: 07/06/23 23:18 Dose: 2.5 mg Documented By: MR Apixaban (Apixaban 5 Mg Tablet) 5 mg PO NOW ONE Stop: 07/06/23 12:35 Last Admin: 07/06/23 12:50 Dose: 5 mg Documented By: Apixaban (Apixaban 5 Mg Tablet) 5 mg PO BID [facility] Last Admin: 07/07/23 10:05 Dose: 5 mg Documented By: Admin: 07/06/23 20:09 Dose: 5 mg Documented By: LEXII Aspirin (Aspirin 81 Mg Chew Tab) 324 mg PO NOW ONE Stop: 07/06/23 10:20 Last Admin: 07/06/23 13:45 Dose: Not Given Documented By: AMANDA Atenolol (Atenolol 25 Mg Tablet) 12.5 mg PO Q4H PRN PRN Reason: SBP>160 or HR>110 Diazepam (Diazepam 2 Mg Tablet) 2 mg PO NOW ONE Stop: 07/06/23 22:30 Last Admin: 07/06/23 23:33 Dose: 2 mg Documented By: LEXII Diltiazem HCl (Diltiazem 5 Mg/Ml Sdv) 10 mg IV NOW ONE Stop: 07/06/23 12:36 Last Admin: 07/06/23 12:49 Dose: 10 mg Documented By: Diltiazem HCl (Diltiazem 30 Mg Tablet) 30 mg PO Q6HR [facility] Last Admin: 07/07/23 06:47 Dose: 30 mg Documented By: Admin: 07/07/23 00:00 Dose: Not Given Documented By: Admin: 07/06/23 18:02 Dose: 30 mg Documented By: Admin: 07/06/23 16:13 Dose: 30 mg Documented By: STERLING Diltiazem HCl (Diltiazem Cd 120 Mg Cap) 120 mg PO DAILY [facility] Last Admin: 07/07/23 10:05 Dose: 120 mg Documented By: MILE DILTIAZEM (Diltiazem 125 Mg/125 Ml-D5w) 125 mg in 125 mls @ 5 mls/hr IV TITRATE CRISTEL; Protocol Last Titration: 07/06/23 19:07 Dose: 0 mg/hr, 0 mls/hr Documented By: Titration: 07/06/23 17:21 Dose: 5 mg/hr, 5 mls/hr Documented By: Titration: 07/06/23 15:50 Dose: 10 mg/hr, 10 mls/hr Documented By: Titration: 07/06/23 14:43 Dose: 15 mg/hr, 15 mls/hr Documented By: Titration: 07/06/23 14:05 Dose: 10 mg/hr, 10 mls/hr Documented By: Admin: 07/06/23 12:50 Dose: 5 mg/hr, 5 mls/hr Documented By: Metoprolol Tartrate (Metoprolol Ir 25 Mg Tablet) 12.5 mg PO BID CRISTEL Metoprolol Tartrate (Metoprolol Tartrate 5 Mg/5 Ml Inj) 5 mg IV Q6H PRN PRN Reason: SBP>160 or HR>110 Naloxone HCl (Naloxone 0.4 Mg/Ml Vial) 0.2 mg IV Q2MIN PRN PRN Reason: Opiate Reversal Potassium Chloride (Potassium Chloride 20 Meq Tab) 40 meq PO NOW ONE Stop: 07/07/23 09:46 Last Admin: 07/07/23 10:05 Dose: 40 meq Documented By: MILE Quetiapine Fumarate (Quetiapine 25 Mg Tablet) 12.5 mg PO Q4H PRN PRN Reason: anxiety/agitation Last Admin: 07/06/23 20:02 Dose: 12.5 mg Documented By: LEXII Vital Signs Vital signs: Vital Signs - 8 hr 07/06/23 10:11 07/06/23 10:21 07/06/23 10:30 Temperature 97.5 F L Pulse Rate 158 H 129 H Respiratory Rate 22 20 Blood Pressure 136/96 H 172/123 H Pulse Oximetry 94 92 Oxygen Delivery Method Room Air 07/06/23 10:30 07/06/23 11:00 07/06/23 11:00 Temperature Pulse Rate 124 H 111 H Respiratory Rate 25 H 14 Blood Pressure 177/112 H Pulse Oximetry 95 95 Oxygen Delivery Method 07/06/23 12:49 Temperature Pulse Rate 127 H Respiratory Rate Blood Pressure 209/145 H Pulse Oximetry Oxygen Delivery Method MDM - Arrhythmia/Palpitations Lab Data 07/07/23 04:35 07/07/23 04:35 Labs: Lab Results 07/06/23 07/06/23 07/06/23 Range/Units 10:22 10:22 10:22 WBC 10.8 (4.5-11.0) X10^3/uL RBC 4.84 (4.5-5.9) X10^6/uL Hgb 15.1 (13.5-17.5) g/dL Hct 44.4 (41-53) % MCV 91.9 (80-100) fL MCH 31.1 (26-34) PG MCHC 33.9 (30-36) % RDW 14.0 (11.6-14.8) % Plt Count 182 (150-400) X10^3/uL Neut % (Auto) 70.2 (50-75) % Lymph % (Auto) 19.4 L (25-40) % [place] % (Auto) 8.6 (3-14) % Eos % (Auto) 1.3 L (2-4) % Baso % (Auto) 0.5 (0-2) % Neut # (Auto) 7500 H (8204-9758) /uL Lymph # (Auto) 2100 (8409-8288) /uL [place] # (Auto) 900 (0-900) /uL Eos # (Auto) 100 (0-450) /uL Baso # (Auto) 100 (0-100) /uL PT 14.6 H (10.1-12.7) SECONDS INR 1.3 (0.9-1.3) APTT 35 (26-36) SECONDS Sodium 137 (137-145) mmol/L Potassium 3.7 (3.4-5.1) mmol/L Chloride 102 (98-107) mmol/L Carbon Dioxide 24 (22-32) mmol/L BUN 18 (9-20) mg/dL Creatinine 0.97 (0.66-1.25) mg/dL Estimated GFR > 60 (>60) mL/min BUN/Creatinine Ratio 18.6 (6-22) Glucose 121 H (80-110) mg/dL Calcium 9.7 (8.4-10.2) mg/dL Magnesium 2.2 (1.6-2.3) mg/dL Total Bilirubin 1.4 H (0.2-1.3) mg/dL AST 28 (17-59) IU/L ALT 28 (<50) IU/L Alkaline Phosphatase 67 (38-126) U/L Total Creatine Kinase 89 (55-170) U/L Troponin I 0.024 (0.01-0.034) ng/mL Total Protein 7.8 (6.3-8.2) g/dL Albumin 4.5 (3.5-5.0) g/dL Globulin 3.3 (1.7-4.1) g/dL Albumin/Globulin Ratio 1.4 (1.0-2.8) Lipase 45 (23-300) U/L Imaging Data Chest x-ray: Radiologist's Impresson: [address] [address] XRay Report Signed Patient: Rosalino Vegas MR#: [id number] : 1950 Acct:[id number] Age/Sex: 73 / M Date of Service: 07/06/23 Loc: ED Accession Number: [id number] ?? Procedure: XR chest 1V Ordering Provider: Lino Glynn MD PROCEDURE:? XR CHEST 1V ? INDICATIONS:? chest pain ? TECHNIQUE:? One view of the chest was acquired.? ? COMPARISON:? [facility], CR, XR CHEST 2V, 03/19/2023, 14:00.? [facility], CR, XR CHEST 1V, 03/18/2023, 20:02. ? FINDINGS:? ? Surgical changes and devices:? Sternotomy wires and mediastinal clips are presen t.? Atrial appendage clip is again seen. ? Lungs and pleura:? Lungs are clear.? No pleural effusions or pneumothorax.? ? Mediastinum:? Cardiomediastinal silhouette is stable in appearance with stable prominence of the pulmonary arteries. ? Bones and chest wall:? No suspicious bony lesions.? Overlying soft tissues appear unremarkable.? ? IMPRESSION:? No acute cardiopulmonary abnormality. ? ? ? Approved by: [place] Bay M.D. on 07/06/2023 at 12:04? [facility] Narrative Medical decision making narrative: Patient here for complains of palpitations off and on since he was discharged here March 20, 2023. Patient has not been taking his prescribed medications including Eliquis since then. Patient has a complains of some ankle edema as well. Denies any chest pain. Complaints of palpitations. Denies any recent illness. No fever chills cough cold or congestion. Patient states he prefers not to be on a beta-elliot but atenolol has worked for him in the past. Patient in no distress at this time. Patient very calm and collected and cooperative. After history and exam CBC CMP troponin EKG Cardizem chest x-ray [facility] CC: Palpitations Complicating co-morbidities: AFib, not on medications Data collected from: Patient Medical records reviewed: March 20, 2023 discharge summary from this hospital Differential considered: Includes but not limited to AFib a flutter Exam documented above, pertinent findings include: Irregularly irregular heart sounds Lab Test results independently reviewed as above. Pertinent findings: WBC 10.8 hemoglobin 15.1 hematocrit 44 sodium 137 potassium 3.7 magnesium 2.2 calcium 9.7 troponin 0.024 Independently reviewed EKG EKG atrial fibrillation with RVR rate 104 Imaging studies independently reviewed: Chest x-ray no acute finding Consultations: 1:00 p.m., spoke with Dr. Sosa, she will admit patient Treatments: Sherin Tavarez Re-evaluations: Reviewed results with patient and he does agree for admission. He does agree with Lilly. Discussion: Appropriate for admission. Patient not a candidate for cardioversion due to not being on Eliquis since discharge February 2023. Patient agrees for admission and Sherin reyes Diagnosis: Atrial fibrillation Critical Care Time Critical Care Time Attestation: Critical Care Time 35 minutes: Critical care time is separate from other billable procedures. This critical care time includes consultation with family and other consulting doctors, review of records, and interpretation of data from labs, EKGs, imaging, etc. Discharge Plan Departure Patient Disposition: Admitted as Observation Clinical Impression: Atrial fibrillation Admit Date/Time: 07/06/23 12:59 Admit Provider: Vanessa Sosa
[2023-07-06] MEDS: dilTIAZem 5 MG/ML SDV 10 MG IV (12:49)
[2023-07-06] MEDS: DILTIAZEM 125 MG/125 ML PIGGYBACK IV (12:50)
[2023-07-06] MEDS: APIXABAN 5 MG TABLET PO ×2 (12:50→20:09)
--- NOTE | 2023-07-06 15:53 | DI.ECHO.S_ITS ---
[facility] +---------+ : : [address] [place] [address] : : : : [id number] : : : : Phone: [phone]+ Echocardiogram Report + + :Name: TAY SANTANA Study Date: 07/07/2023 Height: 74 in : :[facility] ReadingLocation: Weight: 190 lb : : Gender: Male BSA: 2.1 m2 : :: 1950 Age: 73 yrs BP: 154/90 mmHg: :Reason For Study: Assess LV Function : :Ordering Physician: MARISELA, : :FABIO Performed By: Jenna Painter : :Referring: FABIO ANTONIO : + + Interpretation Summary The left ventricle is normal in size. Left ventricular ejection fraction is estimated to be 55%. There has been no significant change since the previous exam. The right ventricular systolic pressure is estimated to be at least 40 mmHg based on an estimated right atrial pressure of 8 mm Hg. Procedure: A two-dimensional transthoracic echocardiogram with color flow and Doppler was performed in limited views only. The study quality was technically difficult. Comparison is made with the echocardiogram of 03/19/2023. A contrast injection of Definity was performed to improve assessment of LV function. The patient was in atrial fibrillation with heart rates between 88 bpm during the exam. Left Ventricle: The left ventricle is normal in size. Left ventricular ejection fraction is estimated to be 55%. There has been no significant change since the previous exam. There are no focal wall motion abnormalities. Tricuspid Valve: Tricuspid leaflets are thickened. There is moderate tricuspid regurgitation. The right ventricular systolic pressure is estimated to be at least 40 mmHg based on an estimated right atrial pressure of 8 mm Hg. Great Vessels: The IVC is dilated (diameter is greater than 2.1 cm) yet it collapses greater than 50% with a sniff. This suggests a right atrial pressure of 8 mm Hg. Pericardium/ Pleura There is no pleural effusion. MMode/2D Measurements & Calculations LVIDd: 5.1 cm LVLs ap4: 6.5 cm LVIDs: 4.5 cm FS: 10.9 % IVSd: 1.2 cm LVPWd: 1.6 cm LV jansen. diameter/BSA (cm/m^2): 2.4 LV sys. diameter/BSA (cm/m^2): 2.1 LVLd ap2: 8.1 cm LVLs ap2: 6.5 cm Doppler Measurements & Calculations Lat Peak E' Jose David: 10.6 cm/sec TR max jose david: 281.0 cm/sec TR max P.6 mmHg Reading Physician:01:06 PM
[2023-07-06] MEDS: dilTIAZem 30 MG TABLET PO ×2 (16:13→18:02)
--- NOTE | 2023-07-06 16:22 | PC.NURSE ---
Addendum entered by Isaura Wells R.N. 07/06/23 18:13: Relayed pt's concerns to provider that pt requesting valium. Pt requests atenolol and refuses metoprolol. Addendum entered by Isaura Wells R.N. 07/06/23 17:22: Titrated Diltiazem gtt from 10 to 5 ml/hr per provider communication order (60 min after PO Dilt given). Original Note: Pt refusing to take IV metoprolol for hypertension. Provider notified.
[2023-07-06 17:33] LABS: MRSA (Nasal) PCR Not Detected (Not Detect)
--- NOTE | 2023-07-06 18:19 | PM.HP.1 ---
History of Present Illness History of Present Illness Chief complaint: Afib Narrative: 73-year-old male with COPD, PTSD, coronary artery disease with previous CABG, and known atrial fibrillation presented to the hospital today complaining of palpitations. Patient was previously admittedFrom March 18 through March 20 of this year with worsening shortness of breath and AFib /A flutter with RVR. He was also noted to have hypertensive urgency. he was diagnosed with congestive heart failure as well during that hospital stay. During that hospitalization, he requested being on the least amount of medications as was necessary. He was placed on Cardizem CD, and Eliquis for his AFib. He was also given prescriptions for furosemide, metoprolol and potassium chloride.On the date of discharge, he refused all medications. He chose to get written prescriptions to bring and get filled via the [facility] if he was going to pursue taking. Patient presented today complaining of intermittent palpitations. He chose not to fill the prior medications. He was complaining of some ankle edema today as well. On arrival today, he was noted to be in AFib with RVR with heart rate of 158. He was placed on a diltiazem drip with subsequent improvement overall in his rate control, however, he continued to have significant hypertension. Patient is very tangential with conversation. He repeatedly tells me that he is financially well off. While I was in the room, he received a phone call from someone he implied was very important and he could not tell me who it was. He states that he is having significant PTSD symptoms. This is manifested as anxiety and agitation, restlessness. He does not appear to be hypervigilant or easily startled. Patient states he was displeased with his previous hospital care and did not feel he needed the medications that were prescribed. He is very critical of the care he received while he was living in [place] as well. He states the [facility] doctors almost ?killed me?. He states he awoke this morning at 3:00 a.m. and noted very elevated blood pressure. He felt somewhat short of breath, which he attributes to poor airflow in his home. Also is expressing concern about potential pesticides that are causing his shortness of breath. He states he presented to the emergency department mostly concerned about his blood pressure. Since he was here in the spring, he has made no efforts to establish care with any providers. He states he needs to see Cardiology, pulmonology, and establish with a primary care provider. He states he simply does not know how to do that and was hoping that we would take care of those appointments for him. He states he lives alone and is leasing his present home. He reports he moved up from [place] approximately 4 months ago. [facility] Medical History CAD (coronary artery disease) of bypass graft COPD (chronic obstructive pulmonary disease) PTSD (post-traumatic stress disorder) Surgical History History of coronary artery bypass graft Family History Father No problems noted. Mother No problems noted. Social History household members: none Smoking Status: Former smoker Meds Home Medications and Allergies Home Medications Medication Instructions Recorded Confirmed Type No Known Home Medications 07/06/23 07/06/23 History Allergies Allergy/AdvReac Type Severity Reaction Status Date / Time acetaminophen [From Tylenol] Allergy Unknown Verified 03/18/23 20:08 levothyroxine Allergy Unknown Verified 03/18/23 20:08 metoprolol Allergy Unknown Verified 07/06/23 10:19 Review of Systems Review of Systems Narrative: All other systems were reviewed negative Exam Vital Signs (past 8 hours): - 07/06/23 10:21 07/06/23 10:30 07/06/23 10:30 Temperature Pulse Rate 129 H 124 H Respiratory Rate 20 25 H Blood Pressure 172/123 H Pulse Oximetry 92 95 Oxygen Delivery Method 07/06/23 11:00 07/06/23 11:00 07/06/23 12:49 Temperature Pulse Rate 111 H 127 H Respiratory Rate 14 Blood Pressure 177/112 H 209/145 H Pulse Oximetry 95 Oxygen Delivery Method 07/06/23 11:30 07/06/23 11:30 07/06/23 11:59 Temperature Pulse Rate 99 H 147 H Respiratory Rate 24 Blood Pressure 172/108 H Pulse Oximetry 96 95 Oxygen Delivery Method 07/06/23 11:59 07/06/23 12:00 07/06/23 12:01 Temperature Pulse Rate 126 H Respiratory Rate Blood Pressure 156/123 H 188/114 H Pulse Oximetry 97 Oxygen Delivery Method 07/06/23 12:01 07/06/23 12:30 07/06/23 12:30 Temperature Pulse Rate 125 H 112 H Respiratory Rate 19 Blood Pressure 209/145 H Pulse Oximetry 97 96 Oxygen Delivery Method 07/06/23 13:00 07/06/23 13:01 07/06/23 13:01 Temperature Pulse Rate 90 85 Respiratory Rate 20 23 Blood Pressure 215/97 H Pulse Oximetry 98 97 Oxygen Delivery Method 07/06/23 13:20 07/06/23 13:20 07/06/23 13:30 Temperature Pulse Rate 90 Respiratory Rate 26 H Blood Pressure 165/105 H 171/101 H Pulse Oximetry 95 Oxygen Delivery Method 07/06/23 13:30 07/06/23 13:04 07/06/23 16:13 Temperature Pulse Rate 83 79 Respiratory Rate 14 Blood Pressure 177/86 H Pulse Oximetry 95 Oxygen Delivery Method Room Air 07/06/23 15:53 07/06/23 15:54 07/06/23 18:02 Temperature 98.2 F Pulse Rate 89 71 Respiratory Rate 20 Blood Pressure 176/129 H 169/88 H Pulse Oximetry 97 Oxygen Delivery Method Room Air Oxygen Delivery Method Room Air Narrative Exam Narrative: GEN: Very talkative elderly male, Alert and oriented x3, no acute distress HEENT: Normocephalic, face symmetric, pupils equal round reactive to light, extraocular movements intact, sclerae anicteric, conjunctiva clear, nares patent, oropharynx reveals an intact soft and hard palate with moist mucous membranes, dentition is fair NECK: Supple, no lymphadenopathy, thyroid without enlargement or nodularity, carotids no bruits CHEST: Respiratory excursions symmetric, clear to auscultation bilaterally CV: Irregularly irregular, rate controlled, no murmurs, rubs, gallops, PMI nondisplaced ABD: Soft, nontender, nondistended, bowel sounds present in all 4 quadrants, no organomegaly or masses appreciated EXTR: Warm, well perfused, no clubbing/cyanosis/edema SKIN: Warm and dry, without rash NEURO: Alert and oriented x3, nonfocal PSYCH: Mood and affect is within normal limits, judgment and insight are poor Objective Labs 07/06/23 10:22 07/06/23 10:22 Labs: Laboratory Results - last 24 hr 0807/06/23 07/06/23 10:22 10:22 10:22 WBC 10.8 RBC 4.84 Hgb 15.1 Hct 44.4 MCV 91.9 MCH 31.1 MCHC 33.9 RDW 14.0 Plt Count 182 Neut % (Auto) 70.2 Lymph % (Auto) 19.4 L [place] % (Auto) 8.6 Eos % (Auto) 1.3 L Baso % (Auto) 0.5 Neut # (Auto) 7500 H Lymph # (Auto) 2100 [place] # (Auto) 900 Eos # (Auto) 100 Baso # (Auto) 100 PT 14.6 H INR 1.3 APTT 35 Sodium 137 Potassium 3.7 Chloride 102 Carbon Dioxide 24 BUN 18 Creatinine 0.97 Estimated GFR > 60 BUN/Creatinine Ratio 18.6 Glucose 121 H Calcium 9.7 Magnesium 2.2 Total Bilirubin 1.4 H AST 28 ALT 28 Alkaline Phosphatase 67 Total Creatine Kinase 89 Troponin I 0.024 Total Protein 7.8 Albumin 4.5 Globulin 3.3 Albumin/Globulin Ratio 1.4 Lipase 45 Nasal Screen MRSA (PCR) 07/06/23 14:15 WBC RBC Hgb Hct MCV MCH MCHC RDW Plt Count Neut % (Auto) Lymph % (Auto) [place] % (Auto) Eos % (Auto) Baso % (Auto) Neut # (Auto) Lymph # (Auto) [place] # (Auto) Eos # (Auto) Baso # (Auto) PT INR APTT Sodium Potassium Chloride Carbon Dioxide BUN Creatinine Estimated GFR BUN/Creatinine Ratio Glucose Calcium Magnesium Total Bilirubin AST ALT Alkaline Phosphatase Total Creatine Kinase Troponin I Total Protein Albumin Globulin Albumin/Globulin Ratio Lipase Nasal Screen MRSA (PCR) Not detected Assessment & Plan Assessment & Plan narrative: 1. Atrial fibrillation with rapid ventricular response patient is admitted under observation status. He will be placed on oral Cardizem and weaned off of the diltiazem drip as tolerated. He could not verify his reported metoprolol allergy but was adamant that he would not take metoprolol. He was requesting atenolol. Could consider using atenolol or perhaps sotalol for antiarrhythmic properties. For now, I have ordered as needed atenolol. He reports he was prescribed it for 10 years and believes that it ?damaged? his heart and was used inappropriately. As he has had a recent echocardiogram earlier this year, will obtain a limited echo to assess for any changes in his ejection fraction Given has poor rate and untreated a fib. [id number] score is 4, equivalent w/a 4.8% annual stroke risk. Would benefit from ongoing anticoagulation. I am uncertain if he will continue to take it. For now, he has agreed to apixaban. 2. Hypertension poorly controlled. Blood pressure is improved overall compared with his arrival at which time he would blood pressures as high as 209/145. His blood pressure is now down to 169/88. I have ordered as needed atenolol. 3. CAD Presently untreated per pt's preference. He reports his grails web application developer told him he no longer needed treatment after receiving stents. He also reports history of aortic stenting. 4. COPD Likely not a candidate for amiodarone for a fib d/t underlying COPD 5. PTSD Pt not actively treated. He has been demanding valium here and developed increasing agitation when it was not prescribed. I have advised that I will not prescribe Valium at this time. I have encouraged use of Seroquel as needed and he has agreed Code Full Prophy Receptive to apixaban thus far. Dispo Hopefully can wean off dilt gtt and get adequate rate control w/oral meds and dc tomorrow. He would benefit from a social work consultation to assist with accessing resources. Quality VTE Deep Vein Thrombosis/Pulmonary Embolism Present on Admission: No
[2023-07-06] MEDS: QUETIAPINE 25 MG TABLET 12.5 MG PO (20:02)
[2023-07-06] MEDS: ALBUTEROL 2.5 MG/3 ML NEB (ADULT) INH (23:18)
[2023-07-06] MEDS: diazePAM 2 MG TABLET PO (23:33)
[2023-07-07] VITALS: BP 117/68; PULSE 50; PULSE 54; RESP 21; TEMP 36.4; O2SAT 96
[2023-07-07 02:00] VITALS: BP 134/65; PULSE 60; RESP 16; O2SAT 94
[2023-07-07 04:00] VITALS: BP 128/88; PULSE 61; RESP 11; TEMP 36.8; O2SAT 95
[2023-07-07 05:19] LABS: Add Manual Diff / Slide Review NO; Basophils Absolute Auto 100 /uL (0-100); Basophils Percent Auto 0.7 % (0-2); Eosinophils Absolute Auto 200 /uL (0-450); Eosinophils Percent Auto 2.6 % (2-4); Hematocrit 39.5 % (41-53); Hemoglobin 13.4 g/dL (13.5-17.5); Lymphocytes Absolute Auto 2300 /uL (1100-4500); Lymphocytes Percent Auto 27.6 % (25-40); Mean Corpuscular Volume 91.1 fL (80-100); Monocytes Absolute Auto 800 /uL (0-900); Monocytes Percent Auto 9.1 % (3-14); Neutrophils Absolute Auto 5000 /uL (1500-7000); Platelet Count 157 X10^3/uL (150-400); Red Blood Cell Count 4.33 X10^6/uL (4.5-5.9); Red Cell Distribution Width 13.7 % (11.6-14.8); White Blood Cell Count 8.3 X10^3/uL (4.5-11.0)
[2023-07-07 05:35] LABS: BUN Creatinine Ratio 20.8 (6-22); Blood Urea Nitrogen 16 mg/dL (9-20); Calcium 9.1 mg/dL (8.4-10.2); Carbon Dioxide 30 mmol/L (22-32); Chloride 101 mmol/L (98-107); Estimated Glomerular Filt Rate > 60 mL/min (>60); Glucose 97 mg/dL (80-110); HEMOLYSIS < 15 (0-50); Magnesium 2.2 mg/dL (1.6-2.3); Potassium 3.4 mmol/L (3.4-5.1); Sodium 136 mmol/L (137-145)
[2023-07-07 06:00] VITALS: BP 137/84; PULSE 67; RESP 19; O2SAT 95
[2023-07-07 06:06] LABS: Thyroid Stimulating Hormone 0.932 uIU/mL (0.47-4.68)
[2023-07-07 06:47] VITALS: BP 137/84; PULSE 83
[2023-07-07] MEDS: dilTIAZem 30 MG TABLET PO (06:47)
[2023-07-07 08:00] VITALS: BP 154/90; PULSE 76; RESP 16; TEMP 36.6; O2SAT 96
--- NOTE | 2023-07-07 09:02 | PM.DS.1 ---
History of Present Illness History of Present Illness Date Patient Seen: 07/07/23 Time Patient Seen: 09:02 Chief complaint: Afib Narrative: Per admitting provider, 73-year-old male with COPD, PTSD, coronary artery disease with previous CABG, and known atrial fibrillation presented to the hospital today complaining of palpitations. Patient was previously admittedFrom March 18 through March 20 of this year with worsening shortness of breath and AFib /A flutter with RVR. He was also noted to have hypertensive urgency. he was diagnosed with congestive heart failure as well during that hospital stay. During that hospitalization, he requested being on the least amount of medications as was necessary. He was placed on Cardizem CD, and Eliquis for his AFib. He was also given prescriptions for furosemide, metoprolol and potassium chloride.On the date of discharge, he refused all medications. He chose to get written prescriptions to bring and get filled via the [facility] if he was going to pursue taking. Patient presented today complaining of intermittent palpitations. He chose not to fill the prior medications. He was complaining of some ankle edema today as well. On arrival today, he was noted to be in AFib with RVR with heart rate of 158. He was placed on a diltiazem drip with subsequent improvement overall in his rate control, however, he continued to have significant hypertension. Patient is very tangential with conversation. He repeatedly tells me that he is financially well off. While I was in the room, he received a phone call from someone he implied was very important and he could not tell me who it was. He states that he is having significant PTSD symptoms. This is manifested as anxiety and agitation, restlessness. He does not appear to be hypervigilant or easily startled. Patient states he was displeased with his previous hospital care and did not feel he needed the medications that were prescribed. He is very critical of the care he received while he was living in [place] as well. He states the [facility] doctors almost ?killed me?. He states he awoke this morning at 3:00 a.m. and noted very elevated blood pressure. He felt somewhat short of breath, which he attributes to poor airflow in his home. Also is expressing concern about potential pesticides that are causing his shortness of breath. He states he presented to the emergency department mostly concerned about his blood pressure. Since he was here in the spring, he has made no efforts to establish care with any providers. He states he needs to see Cardiology, pulmonology, and establish with a primary care provider. He states he simply does not know how to do that and was hoping that we would take care of those appointments for him. He states he lives alone and is leasing his present home. He reports he moved up from [place] approximately 4 months ago. Discharge Providers Provider Date of admission: 07/06/23 12:59 Discharge Date: 07/07/23 Primary care physician: Doctor Donnie MD Consults: 07/06/23 19:34 [place] [facility] [place] Routine Comment: connect w/resources (cardiology #, pulm #, PCPs Discharge provider: Giorgi Sommers DO Summary Hospital Course Discharge Diagnosis: 1. Atrial fibrillation with rapid ventricular response 2. Hypertension 3. CAD 4.? COPD 5.? PTSD Hospital Course: This is a 73 M with PMH of paroxysmal atrial fibrillation, HTN, CAD, COPD, and PTSD who presented with palpitations and dyspnea. He related a lot of his symptoms due to his home environment here, but also reported he had stopped taking medications when he felt better recently. He was initially on a diltiazem infusion for rate control, was able to be weaned off with oral medications. Limited echo showed no change with an EF of 55%. He felt improved the following day. He did not wish to take any beta elliot therapy after discussion, saying they damaged his heart previously. He related his afib to his living situation and asked questions about agent orange, round-up, amongst others. He asked and was prescribed an albuterol inhaler and nebulizer, but then on discharge stated he already had these. He stated he already had apixaban at home as well, though this was prescribed again to allow him to establish care with a primary provider in the community which he has not done as of this time. He did agree to diltiazem, and this dosing at 180 mg daily seemed to control his rate adequately while here. Case management and case management social worker also consulted with patient and offered available services. Time Spent with Patient Time spent: Greater than 30 minutes Exam Vital Signs (past 8 hours): - 07/07/23 02:00 07/07/23 02:00 07/07/23 04:00 Temperature Pulse Rate 60 Respiratory Rate 16 Blood Pressure 134/65 128/88 Pulse Oximetry 94 Oxygen Flow Rate 0 07/07/23 04:00 07/07/23 06:00 07/07/23 06:00 Temperature 98.2 F Pulse Rate 61 67 Respiratory Rate 11 L 19 Blood Pressure 137/84 Pulse Oximetry 95 95 Oxygen Flow Rate 0 0 07/07/23 06:47 07/07/23 08:00 Temperature 97.8 F Pulse Rate 83 76 Respiratory Rate 16 Blood Pressure 137/84 154/90 H Pulse Oximetry 96 Oxygen Flow Rate 0 Oxygen Delivery Method Room Air Oxygen Flow Rate 0 Narrative Exam Narrative: GEN: Very talkative elderly male, Alert and oriented x3, no acute distress HEENT: Normocephalic, face symmetric, pupils equal round reactive to light, extraocular movements intact, sclerae anicteric, conjunctiva clear, nares patent, oropharynx reveals an intact soft and hard palate with moist mucous membranes, dentition is fair NECK: Supple, no lymphadenopathy, thyroid without enlargement or nodularity, carotids no bruits CHEST: Respiratory excursions symmetric, clear to auscultation bilaterally CV: Irregularly irregular, rate controlled, no murmurs, rubs, gallops, PMI nondisplaced ABD: Soft, nontender, nondistended, bowel sounds present in all 4 quadrants, no organomegaly or masses appreciated EXTR: Warm, well perfused, no clubbing/cyanosis/edema SKIN: Warm and dry, without rash NEURO: Alert and oriented x3, nonfocal PSYCH: Mood and affect is within normal limits, judgment and insight are poor Objective Labs 07/07/23 04:35 07/07/23 04:35 Labs: Laboratory Results - last 24 hr 07/06/23 07/06/23 07/06/23 10:22 10:22 10:22 WBC 10.8 RBC 4.84 Hgb 15.1 Hct 44.4 MCV 91.9 MCH 31.1 MCHC 33.9 RDW 14.0 Plt Count 182 Neut % (Auto) 70.2 Lymph % (Auto) 19.4 L [place] % (Auto) 8.6 Eos % (Auto) 1.3 L Baso % (Auto) 0.5 Neut # (Auto) 7500 H Lymph # (Auto) 2100 [place] # (Auto) 900 Eos # (Auto) 100 Baso # (Auto) 100 PT 14.6 H INR 1.3 APTT 35 Sodium 137 Potassium 3.7 Chloride 102 Carbon Dioxide 24 BUN 18 Creatinine 0.97 Estimated GFR > 60 BUN/Creatinine Ratio 18.6 Glucose 121 H Calcium 9.7 Magnesium 2.2 Total Bilirubin 1.4 H AST 28 ALT 28 Alkaline Phosphatase 67 Total Creatine Kinase 89 Troponin I 0.024 Total Protein 7.8 Albumin 4.5 Globulin 3.3 Albumin/Globulin Ratio 1.4 Lipase 45 TSH Nasal Screen MRSA (PCR) 07/06/23 07/07/23 07/07/23 14:15 04:35 04:35 WBC 8.3 RBC 4.33 L Hgb 13.4 L Hct 39.5 L MCV 91.1 MCH 31.0 MCHC 34.0 RDW 13.7 Plt Count 157 Neut % (Auto) 60.0 Lymph % (Auto) 27.6 [place] % (Auto) 9.1 Eos % (Auto) 2.6 Baso % (Auto) 0.7 Neut # (Auto) 5000 Lymph # (Auto) 2300 [place] # (Auto) 800 Eos # (Auto) 200 Baso # (Auto) 100 PT INR APTT Sodium 136 L Potassium 3.4 Chloride 101 Carbon Dioxide 30 BUN 16 Creatinine 0.77 Estimated GFR > 60 BUN/Creatinine Ratio 20.8 Glucose 97 Calcium 9.1 Magnesium 2.2 Total Bilirubin AST ALT Alkaline Phosphatase Total Creatine Kinase Troponin I Total Protein Albumin Globulin Albumin/Globulin Ratio Lipase TSH Nasal Screen MRSA (PCR) Not detected 07/07/23 04:35 WBC RBC Hgb Hct MCV MCH MCHC RDW Plt Count Neut % (Auto) Lymph % (Auto) [place] % (Auto) Eos % (Auto) Baso % (Auto) Neut # (Auto) Lymph # (Auto) [place] # (Auto) Eos # (Auto) Baso # (Auto) PT INR APTT Sodium Potassium Chloride Carbon Dioxide BUN Creatinine Estimated GFR BUN/Creatinine Ratio Glucose Calcium Magnesium Total Bilirubin AST ALT Alkaline Phosphatase Total Creatine Kinase Troponin I Total Protein Albumin Globulin Albumin/Globulin Ratio Lipase TSH 0.932 Nasal Screen MRSA (PCR) [facility] Medical History CAD (coronary artery disease) of bypass graft COPD (chronic obstructive pulmonary disease) PTSD (post-traumatic stress disorder) Surgical History History of coronary artery bypass graft Family History Father No problems noted. Mother No problems noted. Social History household members: none Smoking Status: Former smoker Discharge Plan Discharge Plan Patient Disposition: Home Provider Discharge Comment: You were admitted to the hospital with a fast heart rate. Improved rate with diltiazem which will continue at home. Blood thinner prescribed, as well as nebulizer machine and albuterol with additional albuterol inhaler. Discharge orders & Medications Prescriptions: New Eliquis 5 mg Tablet 5 mg PO BID 90 Days Qty: 180 0RF diltiazem HCl 180 mg capsule,extended release 24 hr 180 mg PO DAILY 90 Days Qty: 90 0RF (DME) nebulizer and compressor Device See Rx Instructions .Route Qty: 1 0RF Rx Instructions: One nebulizer and compressor albuterol sulfate 2.5 mg/0.5 mL solution for nebulization 5 mg inhalation Q6H PRN (Reason: shortness of breath or wheezing) 30 Days Qty: 30 3RF albuterol sulfate 90 mcg/actuation HFA aerosol inhaler 1 inh inhalation QID PRN (Reason: shortness of breath or wheezing) 30 Days Qty: 8.5 3RF diltiazem HCl 180 mg tablet extended release 24 hr 180 mg PO DAILY 90 Days Qty: 90 0RF Follow up/Referrals: Doctor Fields MD [Primary Care Provider] - Diet/Activity/Treatments Diet: Diet as Tolerated and Regular Activity: As tolerated Visit Report/Discharge Packet Instructions: DI for Atrial Fibrillation Stand Alone Forms: Patient Portal/API, Stroke Signs & Symptoms Discharge Data Primary Care Provider: DonnieDoctor Discharges patient from system. Discharge Date/Time: 07/07/23 13:41 Quality VTE Deep Vein Thrombosis/Pulmonary Embolism Present on Admission: No
--- NOTE | 2023-07-07 09:21 | CM.DANOTE ---
Addendum entered by MARLEY Perales 07/07/23 11:39: Add: Addtl conversation w/patient; patient gets overwhelmed and agitated easily. Patient often refers back to last night's use of Seroquel as the reason my brain isn't working right today. Patient has been discharged. Patient requests taxi voucher and gets irritated when asked about paying for taxi on his own This OPAL POLISHER suggests calling Jose Sevilla at [facility] on patient's behalf and patient is pleased and appreciative for this offer, gives permission Patient asks this OPAL POLISHER to schedule in an appt with a Pullman Car Clerk and Bi Report Developer in [place], explained this may not be available w/o a PCP Placed call to Jose Sevilla (Wally), explained patient discharging home from the hospital today. Kj familiar with this patient and , says he has made suggestions and patient has not followed through. Patient has ppk to complete and has not completed. Explained that medical team is concerned about patient, dx of PTSD and likely undiagnosed MH illness w/paranoid features Kj explains he can help assist patient in getting established at the [facility] and once established patient has access to the social workers and global cmo for MH support Both Kj and this OPAL POLISHER agreed that patient is decisional and of sound mind to make decisions for himself so patient will be responsible for follow through JW Original Note: Initial DCP Assessment Note Pt is a 73 yo male, resident of [place], presents with palpitations, admitted for medical management of afib w/rvr, HTN w/ PMH includes CAD, COPD and PTSD Chart indicates that: He (patient) was placed on Cardizem CD, and Eliquis for his AFib. He was also given prescriptions for furosemide, metoprolol and potassium chloride.On the date of discharge, he refused all medications. PCP: Attempting to secure [place] provider per patient Payer: [facility] Reviewed chart, met w/patient this morning to introduce role, review discharge plan and discuss any barriers to accessing medical treatment and medications Brief visit, diagnostics arrived for echo. Patient talkative this morning, tells this OPAL POLISHER he rents an apt that looks out over [facility] and [facility], says they spray with Round Up which has been irritating his lungs. Patient then talks about the development of his afib from the use of an inhaler As chart indicates, patient's thoughts seem tangential and it is difficult to keep him on one topic. Patient is attempting to [facility] with a [facility] provider and says he would benefit from [facility] support from the [facility]. Patient has been in contact w/Jose Sevilla with [facility] P [phone] says but we didn't get anything done This CM team following closely for referral to available resources. Patient discharged home today MARLEY Bryant Discharge Planning/Care Management CM Discharge Assessment Start: 07/07/23 09:19 Freq: Status: Active Protocol: Document 07/07/23 09:19 URSULA (Rec: 07/07/23 09:20 [email or web address] [id number]) Discharge Planning Assessment Assigned Granite Polisher Machine MARLEY Aguirre DPOA/Assigned Designee Name None Advance Directives? No History Provided By Patient,Medical Record Prior Living Arrangements Apartment/Condo Household Members none Type of transporation used prior to Drives own vehicle admit Independent with ADL's Yes Is patient alert and oriented? Yes Barriers to Discharge No Discharge Plan Home Transportation Arrangement Taxi Referrals Initiated None needed
[2023-07-07] MEDS: APIXABAN 5 MG TABLET PO (10:05)
[2023-07-07] MEDS: dilTIAZem CD 120 MG CAP PO (10:05)
[2023-07-07] MEDS: POTASSIUM CHLORIDE 20 MEQ TAB 40 MEQ PO (10:05)
--- NOTE | 2023-07-07 11:25 | PC.NURSE ---
Addendum entered by Jenna Donovan R.N. 07/07/23 13:42: Pt eating lunch. Discharge instructions provided on to pt on medications, worsening symptoms, obtaining a primary care provider, monitoring HR and BP. IV discontinued, telemetry removed. Pt raising concerns on obtaining prescriptions. 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 Pt states, I don't know what kind of shape I'm gonna be in tomorrow. Pt pacing in room, face tight and pt showing signs of agitation and aggression. Pt following nursing staff to nurse's station, stating, if I don't get a dose or two before I leave, you're going to be liable for me getting sick again. This RN provided pt with options, such as moving his prescription to an outpatient pharmacy within the hospital in order to obtain medication today. Pt stated in previous stay, the inpatient pharmacy provided pt with 1-2 doses to take home. This RN clarified with inpatient pharmacy and was told this is not the case; the inpatient pharmacy cannot dispense medications for outpatient unless there are extenuating circumstances such as no other pharmacies being open. This information was relayed to pt. Pt became visibly agitated, walking within close vicinity of this RN, stating, this is a bold face lie. Charge nurse at bedside, assisting in pt education. Pt agreeable to having his medications sent to an outpatient pharmacy within the hospital. Pt requests clarification on medication, this RN and charge nurse reeducated pt on the medications he is being sent home with, pt verbalizes understanding of the education and able to teach back what medications he will be taking and what the medications are for. Pt states, I'm doing this to watch your back and the hospitals if I get sick again. Charge nurse wheeled pt via wheelchair to outpatient pharmacy at approximately 1340. Outpatient pharmacy called at approximately 1355 stating that pt was unsure of medications. This RN clarified with pharmacy staff the dose the provider order for pt to go on with. Outpatient pharmacy called again within approximately 2 mins, pt wanting to talk with this RN. Pt states the pills look different from the ones administered inpatient. This RN educated pt on the dose that was prescribed. Pt agreeable and verbalized understanding before ending the call. Original Note: Day shift: Pt A&Ox4, ambulating to BR. Pt appears anxious, stating he does not want the medication that he received last night ever again (See MAR). He expresses that he specifically wanted an anti-anxiety medication. Pt expresses his distrust of the medical field in a generalized manner. Pt states, I trust this hospital but I didn't want something that made me lobotomized. Education provided to pt on medication he had received and was referencing. VSS, atrial fib CVR on telemetry. Provider at bedside. Pt agreeable to discharge plan. Care management at bedside. Pt states he wants to eat his lunch prior to discharge. Care ongoing.
--- NOTE | 2023-07-07 13:41 | PC.NURSE ---
Day shift: This video games storywriter helped Pt to [place] pharmacy at approx 1335 via WC. Pt was upset that he could not get his Diltizem prior to discharging from room 227. Dr Sommers aware and script sent to [place]. Pt calm and cooperative and agrees to wait for this new script and then call himself a taxi to get home. He made it clear that he uses taxis often and that he has plenty of money to pay for them. Pt was also given the phone number for the taxi. Pt does have a functioning cell phone on his person at this time.
--- NOTE | 2023-07-08 13:03 | CM.DPNOTE ---
DC Note Late Entry Upon patient's discharge yesterday, this FILLING HAND spoke with patient about transport home and he said there was no one he could rely on to get him home and that last time they gave me a voucher, I want a taxi voucher Encouraged patient to consider taxi via his own masters payment and patient refused, referring back to the taxi voucher he had received during his last visit Scheduled [facility] [employer] using taxi voucher for 1300 Patient had been told his taxi was coming at 1300 and patient finished his lunch. Patient began to escalate, patient became accusatory and staff wondered if security was needed to escort patient off the acute care floor. Patient was perseverating over his medications, talking to the doctor, and being able to access new Rx in a timely fashion. 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 Original to be sent to Director, copy given to Frantz JW
== END 2023-07-07 13:41 | disposition home or self-care (01) ==
LOC: ED 12:40 → ICU 13:52
PROVIDERS: Admitting Provider Family Medicine; Emergency Provider Emergency Medicine; Referring Provider Emergency Medicine; Visit Provider Family Medicine
DX: I48.91 Unspecified atrial fibrillation (principal); J44.9 Chronic obstructive pulmonary disease, unspecified; I25.10 Atherosclerotic heart disease of native coronary artery without angina pectoris; I10 Essential (primary) hypertension; Z95.1 Presence of aortocoronary bypass graft
CPT/HCPCS: 36415; 71045; 80048; 80053; 82550; 83690; 83735; 84443; 84484; 85025; 85610; 85730; 87797; 93005; 93010; 93307; 94640; 96365; 96366; 96375; 99284; G0378; J7613; Q9957